=== PATIENT | female | born 1955 | race Caucasian/White ===

== ENCOUNTER → 2016-06-28 | Outpatient (CLI) | payer BC ==
[2016-06-28] MEDS: Iopamidol 755 MG/ML 500 ML Multipack Bottle IVPUSH STA (10:32)
--- NOTE | 2016-06-28 13:36 | CT ---
CT of the abdomen and pelvis with and without contrast. HISTORY: Hematuria TECHNIQUE: Axial CT images were obtained of the abdomen and pelvis without and following the adminis tration of 83 mL in the left antecubital fossa. Coronal and sagittal reconstructions obtained. FINDINGS: The lung bases are clear, no pleural effusion. Tiny hepatic cysts noted. The spleen, adrenal glands, and pancreas appear unremarkable. Cholecystect nerissa. There is no bulky retroperitoneal lymphadenopathy. No abdominal ascites. There are 2-3 mm nonobstructing left renal stones are noted. The kidneys otherwise enhance and funct ion symmetrically without evidence of obstructive uropathy. The large and small bowel are normal in caliber without evidence of obstruction. Appendectomy. Diver ticulosis is noted without evidence of diverticulitis. There is no bulky pelvic lymphadenopathy. No free fluid. No free air. The urinary bladder appears normal. Mild infrarenal aortic ectasia. The visualized osseous structures appear normal. IMPRESSION: 1. No acute findings within the abdomen or pelvis. 2. Small nonobstructing left nephrolithiasis. 3. Diverticulosis without evidence of diverticulitis.
== END ==
LOC: MW.DI 09:21
PROVIDERS: ATTEND Urology
DX: R31.9 Hematuria, unspecified (principal); N20.0 Calculus of kidney; K57.90 Diverticulosis of intestine, part unspecified, without perforation or abscess without bleeding
CPT/HCPCS: 36415; 74178; 82565; Q9967

== ENCOUNTER → 2016-07-26 | Outpatient (CLI) | payer BC | END | disposition home or self-care (01) | LOC: MW.CHFP 13:43 | PROVIDERS: ATTEND Emergency Medicine | DX: E11.9 Type 2 diabetes mellitus without complications (principal) | CPT/HCPCS: 36415; 83036 ==

== ENCOUNTER → 2016-08-08 | Outpatient (CLI) | payer BC ==
[2016-08-08 16:31] LABS: CHLORIDE,CL 108 mmol/L (98-110); SODIUM,NA 143 mmol/L (136-146)
--- NOTE | 2016-08-09 14:42 | CR ---
EXAM DATE: 08/08/16 PATIENT'S AGE: 60 Patient: YULIANA HANSON Facility: [place], [place] Site . Site : 1955 Study: XRay Spine Cervical [id number]/26/2017 11:55:25 AM Ordering Physician: Nawaf Huerta Pa-C Final Report: HISTORY: Bilateral shoulder pain. Technique: Three views of the cervical spine. Comparison: No prior. Findings: There is no cervical fracture or malalignment. Mild degenerative disc disease without significant disc space narrowing. Degenerative joint disease is present within the cervical spine. The base of the dens appears intact. Normal articulation of lateral masses of C1 and C2. There is no acute fracture. Prevertebral soft tissues within normal limits. Hyperplastic transverse process on the right at C7 versus rudimentary rib. Impression: 1. No fracture or malalignment. 2. Degenerative disc and joint disease. Dictated by Arnulfo Bishop MD @ Aug 09 2016 1:16PM (Electronic Signature) Report Signed by Proxy. BRIAN
== END ==
LOC: MW.CHORTHO 11:37
PROVIDERS: ATTEND Physician Assistant
DX: M25.511 Pain in right shoulder (principal); M25.512 Pain in left shoulder; R61 Generalized hyperhidrosis; M50.30 Other cervical disc degeneration, unspecified cervical region; M47.812 Spondylosis without myelopathy or radiculopathy, cervical region
CPT/HCPCS: 36415; 72040; 72040-26; 80053; 85025

== ENCOUNTER 2016-08-31 22:44 | Emergency (ER) | payer BC ==
--- NOTE | 2016-08-31 23:04 | EDM.PDOC ---
ED HPI GENERAL MEDICAL PROBLEM - General Chief Complaint: ENT Problem Stated Complaint: PT HAS BLISTER INSIDE MOUTH Time Seen by Provider: 08/31/16 23:04 Source of Information: Reports: Patient - History of Present Illness INITIAL COMMENTS - FREE TEXT/NARRATIVE: HISTORY AND PHYSICAL: History of present illness: [] Patient presents with a blood blister on her right cheek at the size of a PE , she is on aspirin Plavix, she does bruise easily, she is concerned about the lesions is not certain if she bit her cheek or what is caused lesion however that would be the appearance No other symptoms such as fever nausea vomiting chills sweats no chest pain shortness breath headache dizziness or palpitation no bowel or urine symptoms Review of systems: As per history of present illness and below otherwise all systems reviewed and negative. Past medical history: As per history of present illness and as reviewed below otherwise noncontributory. Surgical history: As per history of present illness and as reviewed below otherwise noncontributory. Social history: No reported history of drug or alcohol abuse. Family history: As per history of present illness and as reviewed below otherwise noncontributory. Physical exam: HEENT: Atraumatic, normocephalic, pupils reactive, negative for conjunctival pallor or scleral icterus, mucous membranes moist, throat clear, neck supple, nontender, trachea midline. Oral mucosa within normal limits other than a blood blister on her right cheek as per history of present illness, nonbleeding Lungs: Clear to auscultation, breath sounds equal bilaterally, chest nontender. Heart: S1S2, regular, negative for clicks, rubs, or JVD. Abdomen: Soft, nondistended, nontender. Negative for masses or hepatosplenomegaly. Negative for costovertebral tenderness. Pelvis: Stable nontender. Genitourinary: Deferred. Rectal: Deferred. Extremities: Atraumatic, negative for cords or calf pain. Neurovascular unremarkable. Neuro: Awake, alert, oriented. Cranial nerves II through XII unremarkable. Cerebellum unremarkable. Motor and sensory unremarkable throughout. Exam nonfocal. Diagnostics: [] CBC, INR, PT Therapeutics: [] None Impression: [] Blood blister/small hematoma right cheek Definitive disposition and diagnosis as appropriate pending reevaluation and review of above. mouth Pain Score (Numeric/FACES): 6 - Related Data Allergies Allergy/AdvReac Type Severity Reaction Status Date / Time amoxicillin [Amoxicillin] Allergy Rash Verified 08/13/13 11:45 cephalexin Allergy Rash Verified 08/31/16 22:53 Corticosteroids Allergy Depression Verified 08/13/13 11:45 (Glucocorticoids) erythromycin base Allergy Rash Verified 08/13/13 11:45 [Erythromycin Base] Penicillins Allergy Rash Verified 08/13/13 11:45 Home Meds: Home Meds Aspirin 81 mg PO DAILY 12/12/14 [History] Clopidogrel [Plavix] 75 mg PO DAILY 12/12/14 [History] Losartan [Cozaar] 25 mg PO DAILY 12/12/14 [History] atorvaSTATin [Lipitor] 40 mg PO BEDTIME 12/12/14 [History] predniSONE [Prednisone] 5 mg PO DAILY 12/12/14 [History] Carvedilol [Coreg] 6.25 mg PO BIDMEALS 08/31/16 [History] metFORMIN [Glucophage XR] 500 mg PO DAILY 08/31/16 [History] Past Medical History - Past Surgical History Other Musculoskeletal Surgeries/Procedures:: back/disc surgery (may 2014) Social & Family History - Tobacco Use Smoking Status *Q: Current Every Day Smoker Years of Tobacco use: 40 Packs/Tins Daily: 0.5 - Recreational Drug Use Recreational Drug Use: No ED ROS GENERAL - Review of Systems Review Of Systems: ROS reveals no pertinent complaints other than HPI. ED EXAM, GENERAL - Physical Exam Exam: See Below Course - Vital Signs Last Recorded V/S: Last Vital Signs Temp 36.8 C 08/31/16 22:55 Pulse 80 08/31/16 22:55 Resp 18 08/31/16 22:55 BP 191/92 H 08/31/16 22:55 Pulse Ox 98 08/31/16 22:55 - Orders/Labs/Meds Labs: Laboratory Tests 08/31/16 08/31/16 Range/Units 23:20 23:20 WBC 12.84 H (4.0-11.0) K/uL RBC 4.86 (4.30-5.90) M/uL Hgb 12.9 (12.0-16.0) g/dL Hct 40.1 (36.0-46.0) % MCV 82.5 (80.0-98.0) fL MCH 26.5 L (27.0-32.0) pg MCHC 32.2 (31.0-37.0) g/dL RDW Std Deviation 52.1 (28.0-62.0) fl RDW Coeff of Dorene 17 H (11.0-15.0) % Plt Count 351 (150-400) K/uL MPV 9.20 (7.40-12.00) fL Neut % (Auto) 62.4 (48.0-80.0) % Lymph % (Auto) 27.9 (16.0-40.0) % [place] % (Auto) 7.8 (0.0-15.0) % Eos % (Auto) 1.6 (0.0-7.0) % Baso % (Auto) 0.3 (0.0-1.5) % Neut # (Auto) 8.0 H (1.4-5.7) K/uL Lymph # (Auto) 3.6 H (0.6-2.4) K/uL [place] # (Auto) 1.0 H (0.0-0.8) K/uL Eos # (Auto) 0.2 (0.0-0.7) K/uL Baso # (Auto) 0.0 (0.0-0.1) K/uL Nucleated RBC % 0.0 /100WBC Nucleated RBCs # 0 K/uL INR 0.99 (0.86-1.11) Departure - Departure Time of Disposition: 00:06 Disposition: Home, Self-Care 01 Condition: good Clinical Impression: Hematoma - Discharge Information Forms: ED Department Discharge Additional Instructions: Return if symptoms persist or worsen Followup with primary care as needed Continue current medications as prescribed The following information is given to patients seen in the emergency department who are being discharged to home. This information is to outline your options for follow-up care. We provide all patients seen in our emergency department with a follow-up referral. The need for follow-up, as well as the timing and circumstances, are variable depending upon the specifics of your emergency department visit. If you don't have a primary care physician on staff, we will provide you with a referral. We always advise you to contact your personal physician following an emergency department visit to inform them of the circumstance of the visit and for follow-up with them and/or the need for any referrals to a consulting specialist. The emergency department will also refer you to a specialist when appropriate. This referral assures that you have the opportunity for follow-up care with a specialist. All of these measure are taken in an effort to provide you with optimal care, which includes your follow-up. Under all circumstances we always encourage you to contact your private physician who remains a resource for coordinating your care. When calling for follow-up care, please make the office aware that this follow-up is from your recent emergency room visit. If for any reason you are refused follow-up, please contact the [facility] emergency department at and asked to speak to the emergency department charge nurse.
[2016-09-01 01:22] VITALS: BP 150/80
== END 2016-09-01 00:12 | disposition home or self-care (01) ==
LOC: MW.ED 22:44
DX: S00.83XA Contusion of other part of head, initial encounter (principal); F17.210 Nicotine dependence, cigarettes, uncomplicated; Z88.1 Allergy status to other antibiotic agents; Z88.0 Allergy status to penicillin; Z88.8 Allergy status to other drugs, medicaments and biological substances; Z79.82 Long term (current) use of aspirin; Z79.899 Other long term (current) drug therapy; Z79.84 Long term (current) use of oral hypoglycemic drugs; X58.XXXA Exposure to other specified factors, initial encounter
CPT/HCPCS: 85025; 85610; 99282; 99283

== ENCOUNTER 2016-12-19 13:30 | Observation (INO) | payer BC ==
[2016-12-19] MEDS ORDERED: Aspirin 81 MG Tab.Chew PO ONE (13:43)
[2016-12-19] MEDS ORDERED: Sodium Chloride 0.9% 2.5 ML Syringe FLUSH PRN ×2 (13:43)
[2016-12-19] MEDS ORDERED: Sodium Chloride 0.9% 10 ML Syringe FLUSH PRN (13:43)
[2016-12-19] MEDS ORDERED: Nitroglycerin 0.4 MG Tab.SL SL SCH (13:45)
--- NOTE | 2016-12-19 13:50 | EDM.PDOC ---
ED HPI GENERAL MEDICAL PROBLEM - General Stated Complaint: PRESSURE ON CHEST Time Seen by Provider: 12/19/16 13:43 - History of Present Illness INITIAL COMMENTS - FREE TEXT/NARRATIVE: HISTORY AND PHYSICAL: History of present illness: The patient is a 61-year-old female who follows in our family practice clinic and has a known history of coronary artery disease with 2 stents placed 2 years ago at [facility], she also has a history of GERD and a hiatal hernia, COPD, hypertension hypercholesterolemia; patient presents to the ED with chest pressure that has been episodic since Saturday, 3 days ago. The patient says she has sublingual nitroglycerin at home but she did not try that because it doesn' t heal like cardiac pain feels more like gas. She says it will come on episodically and only last for a few minutes she will belch and it will improve. She says that Saturday night she had diaphoresis and woke very sweaty but did not have pain until Saturday. Patient presented to the clinic and was referred here due to her history. Patient currently rates the pain as a pressure it is midsternal and nonradiating and not associated with shortness of breath abdominal pain nausea vomiting or back pain. She rates it as a 4/10 and again did not take any nitroglycerin. Patient has followed up with her charge weigher at [facility] and says that he has not done any testing in the last 2 years. The patient also has a long-standing history of tobacco use but no drug use The patient does tell me that she was in the clinic several weeks ago for a gastritis. Review of systems: As per history of present illness and below otherwise all systems reviewed and negative. Past medical history: As per history of present illness and as reviewed below otherwise noncontributory. Surgical history: As per history of present illness and as reviewed below otherwise noncontributory. Social history: No reported history of drug or alcohol abuse. Family history: As per history of present illness and as reviewed below otherwise noncontributory. Physical exam: Gen.: Well-developed well-nourished female who is nontoxic and speaking clearly and easily. Vital signs have been reviewed by me HEENT: Atraumatic, normocephalic, negative for conjunctival pallor or scleral icterus, mucous membranes moist, throat clear, neck supple, nontender, trachea midline. Lungs: Clear to auscultation, breath sounds equal bilaterally, chest nontender. Heart: S1S2, regular rate and rhythm no overt murmurs Abdomen: Soft, nondistended, nontender. NABS Skin: No diaphoresis normal turgor no evidence of any rashes or lesions Genitourinary: Deferred. Rectal: Deferred. Extremities: Atraumatic, negative for cords or calf pain. Neurovascular unremarkable. No pedal edema no leg asymmetry Neuro: Awake, alert, oriented. Cranial nerves II through XII unremarkable. Cerebellum unremarkable. Motor and sensory unremarkable throughout. Exam nonfocal. Diagnostics: CBC CMP troponin INR amylase lipase chest x-ray EKG Therapeutics: IV O2 monitor aspirin, 3 baby as the patient took one small morning, sublingual nitroglycerin, NTP Patient is chest pain-free after 2 sublingual nitroglycerin and nitro paste will be placed. I will continue to monitor the results and discuss with her the testing results and care plan. TESTING results were discussed with the patient as well as with Dr. Simpson [id number] : She is agreeable for observation admission as well as the hospitalist who also except for for admission. Impression: Chest pain rule out ACS Definitive disposition and diagnosis as appropriate pending reevaluation and review of above. chest Pain Score (Numeric/FACES): 4 - Related Data Allergies Allergy/AdvReac Type Severity Reaction Status Date / Time amoxicillin [Amoxicillin] Allergy Rash Verified 12/19/16 13:51 cephalexin Allergy Rash Verified 12/19/16 13:51 Corticosteroids Allergy Depression Verified 12/19/16 13:51 (Glucocorticoids) erythromycin base Allergy Rash Verified 12/19/16 13:51 [Erythromycin Base] Penicillins Allergy Rash Verified 12/19/16 13:51 Home Meds: Home Meds Aspirin 81 mg PO DAILY 12/12/14 [History] Clopidogrel [Plavix] 75 mg PO DAILY 12/12/14 [History] Losartan [Cozaar] 25 mg PO DAILY 12/12/14 [History] atorvaSTATin [Lipitor] 40 mg PO BEDTIME 12/12/14 [History] predniSONE [Prednisone] 5 mg PO DAILY 12/12/14 [History] Carvedilol [Coreg] 6.25 mg PO BIDMEALS 08/31/16 [History] metFORMIN [Glucophage XR] 500 mg PO DAILY 08/31/16 [History] Past Medical History HEENT History: Reports: Impaired Vision Other HEENT History: wears glasses Cardiovascular History: Reports: CAD, High Cholesterol, Hypertension, Stents Endocrine/Metabolic History: Reports: Diabetes, Type II - Past Surgical History Other Musculoskeletal Surgeries/Procedures:: back/disc surgery (may 2014) Social & Family History - Family History Family Medical History: Noncontributory - Tobacco Use Smoking Status *Q: Current Every Day Smoker Years of Tobacco use: 40 Packs/Tins Daily: 0.5 - Caffeine Use Caffeine Use: Reports: Tea Caffeine Use Comment: 1 cup daily - Recreational Drug Use Recreational Drug Use: No ED ROS GENERAL - Review of Systems Review Of Systems: ROS reveals no pertinent complaints other than HPI. ED EXAM, GENERAL - Physical Exam Exam: See Below (See dictation) Course - Vital Signs Last Recorded V/S: Last Vital Signs Temp 36.6 C 12/19/16 13:30 Pulse 86 12/19/16 13:30 Resp 18 12/19/16 15:15 BP 149/87 H 12/19/16 15:15 Pulse Ox 96 12/19/16 15:15 - Orders/Labs/Meds Orders: Active Orders 24 hr Category Date Time Status Patient Status [ADT] Stat ADT 12/19/16 15:50 Ordered Cardiac Monitoring [RC] . DIRECTED Care 12/19/16 13:43 Active EKG Documentation Completion [RC] STAT Care 12/19/16 13:43 Active Oxygen Therapy [RC] ASDIRECTED Care 12/19/16 13:43 Active Pulse Oximetry [RC] ASDIRECTED Care 12/19/16 13:43 Active Sodium Chloride 0.9% [Saline Flush] Med 12/19/16 13:43 Active 10 ml FLUSH ASDIRECTED PRN Sodium Chloride 0.9% [Saline Flush] Med 12/19/16 13:43 Active 2.5 ml FLUSH ASDIRECTED PRN Sodium Chloride 0.9% [Saline Flush] Med 12/19/16 13:43 Active 2.5 ml FLUSH ASDIRECTED PRN Saline Lock Insert [OM.PC] Stat Oth 12/19/16 13:43 Ordered Medication Orders Sodium Chloride (Saline Flush) 2.5 ml FLUSH ASDIRECTED PRN PRN Reason: Keep Vein Open Sodium Chloride (Saline Flush) 10 ml FLUSH ASDIRECTED PRN PRN Reason: Keep Vein Open Sodium Chloride (Saline Flush) 2.5 ml FLUSH ASDIRECTED PRN PRN Reason: Keep Vein Open Labs: Laboratory Tests 12/19/16 12/19/16 12/19/16 Range/Units 13:53 13:53 13:53 WBC 15.50 H (4.0-11.0) K/uL RBC 5.17 (4.30-5.90) M/uL Hgb 14.6 (12.0-16.0) g/dL Hct 43.9 (36.0-46.0) % MCV 84.9 (80.0-98.0) fL MCH 28.2 (27.0-32.0) pg MCHC 33.3 (31.0-37.0) g/dL RDW Std Deviation 49.1 (28.0-62.0) fl RDW Coeff of Dorene 16 H (11.0-15.0) % Plt Count 361 (150-400) K/uL MPV 9.20 (7.40-12.00) fL Neut % (Auto) 70.6 (48.0-80.0) % Lymph % (Auto) 22.1 (16.0-40.0) % [place] % (Auto) 6.8 (0.0-15.0) % Eos % (Auto) 0.4 (0.0-7.0) % Baso % (Auto) 0.1 (0.0-1.5) % Neut # (Auto) 10.9 H (1.4-5.7) K/uL Lymph # (Auto) 3.4 H (0.6-2.4) K/uL [place] # (Auto) 1.1 H (0.0-0.8) K/uL Eos # (Auto) 0.1 (0.0-0.7) K/uL Baso # (Auto) 0.0 (0.0-0.1) K/uL Nucleated RBC % 0.0 /100WBC Nucleated RBCs # 0 K/uL INR 0.98 (0.86-1.11) Sodium 141 (136-146) mmol/L Potassium 4.0 (3.5-5.1) mmol/L Chloride 106 (98-110) mmol/L Carbon Dioxide 25 (21-31) mmol/L BUN 12 (6.0-23.0) mg/dL Creatinine 0.7 (0.6-1.5) mg/dL Est Cr Clr Drug Dosing 78.01 mL/min Estimated GFR (MDRD) > 60.0 ml/min Glucose 107 (60-110) mg/dL Calcium 10.2 (8.8-10.8) mg/dL Total Bilirubin 0.8 (0.1-1.5) mg/dL AST 16 (5-40) IU/L ALT 27 (8-54) IU/L Alkaline Phosphatase 103 (40-150) Troponin I (0.0-0.29) NG/ML Total Protein 7.8 (6.0-8.0) g/dL Albumin 4.3 (3.4-4.8) g/dL Globulin 3.5 (2.0-3.5) g/dL Albumin/Globulin Ratio 1.2 L (1.3-2.8) Amylase 47 (10-90) U/L Lipase 17 (7-80) U/L 12/19/16 Range/Units 13:53 WBC (4.0-11.0) K/uL RBC (4.30-5.90) M/uL Hgb (12.0-16.0) g/dL Hct (36.0-46.0) % MCV (80.0-98.0) fL MCH (27.0-32.0) pg MCHC (31.0-37.0) g/dL RDW Std Deviation (28.0-62.0) fl RDW Coeff of Dorene (11.0-15.0) % Plt Count (150-400) K/uL MPV (7.40-12.00) fL Neut % (Auto) (48.0-80.0) % Lymph % (Auto) (16.0-40.0) % [place] % (Auto) (0.0-15.0) % Eos % (Auto) (0.0-7.0) % Baso % (Auto) (0.0-1.5) % Neut # (Auto) (1.4-5.7) K/uL Lymph # (Auto) (0.6-2.4) K/uL [place] # (Auto) (0.0-0.8) K/uL Eos # (Auto) (0.0-0.7) K/uL Baso # (Auto) (0.0-0.1) K/uL Nucleated RBC % /100WBC Nucleated RBCs # K/uL INR (0.86-1.11) Sodium (136-146) mmol/L Potassium (3.5-5.1) mmol/L Chloride (98-110) mmol/L Carbon Dioxide (21-31) mmol/L BUN (6.0-23.0) mg/dL Creatinine (0.6-1.5) mg/dL Est Cr Clr Drug Dosing mL/min Estimated GFR (MDRD) ml/min Glucose (60-110) mg/dL Calcium (8.8-10.8) mg/dL Total Bilirubin (0.1-1.5) mg/dL AST (5-40) IU/L ALT (8-54) IU/L Alkaline Phosphatase (40-150) Troponin I < 0.10 (0.0-0.29) NG/ML Total Protein (6.0-8.0) g/dL Albumin (3.4-4.8) g/dL Globulin (2.0-3.5) g/dL Albumin/Globulin Ratio (1.3-2.8) Amylase (10-90) U/L Lipase (7-80) U/L Meds: Medications Generic Name Dose Route Start Last Admin Trade Name Freq PRN Reason Stop Dose Admin Sodium Chloride 2.5 ml 12/19/16 13:43 Saline Flush FLUSH ASDIRECTED PRN Keep Vein Open Sodium Chloride 10 ml 12/19/16 13:43 Saline Flush FLUSH ASDIRECTED PRN Keep Vein Open Sodium Chloride 2.5 ml 12/19/16 13:43 Saline Flush FLUSH ASDIRECTED PRN Keep Vein Open Discontinued Medications Generic Name Dose Route Start Last Admin Trade Name Freq PRN Reason Stop Dose Admin Aspirin 243 mg 12/19/16 13:43 12/19/16 14:07 Aspirin PO 12/19/16 13:44 243 mg ONETIME ONE Administration Nitroglycerin 0.4 mg 12/19/16 13:45 Nitrostat SL Q5M TAPAN Nitroglycerin 0.4 mg 12/19/16 14:06 12/19/16 14:10 Nitrostat SL 12/19/16 14:07 0.4 mg Q5M STA Administration Nitroglycerin 0.4 mg 12/19/16 14:11 12/19/16 14:18 Nitrostat SL 12/19/16 14:12 0.4 mg Q5M STA Administration Nitroglycerin 0.5 gm 12/19/16 14:33 12/19/16 15:19 Nitro-Bid 2% TOP 12/19/16 14:34 0.5 gm ONETIME ONE Administration Departure - Departure Time of Disposition: 15:52 Disposition: Refer to Observation Condition: Good Clinical Impression: Acute coronary syndrome - Discharge Information Referrals: PCP,None [Primary Care Provider] - - My Orders Last 24 Hours: My Active Orders 12/19/16 13:43 Cardiac Monitoring [RC] . DIRECTED EKG Documentation Completion [RC] STAT Oxygen Therapy [RC] ASDIRECTED Pulse Oximetry [RC] ASDIRECTED Sodium Chloride 0.9% [Saline Flush] 10 ml FLUSH ASDIRECTED PRN Sodium Chloride 0.9% [Saline Flush] 2.5 ml FLUSH ASDIRECTED PRN Sodium Chloride 0.9% [Saline Flush] 2.5 ml FLUSH ASDIRECTED PRN Saline Lock Insert [OM.PC] Stat 12/19/16 15:50 Patient Status [ADT] Stat - Assessment/Plan Last 24 Hours: My Active Orders 12/19/16 13:43 Cardiac Monitoring [RC] . DIRECTED EKG Documentation Completion [RC] STAT Oxygen Therapy [RC] ASDIRECTED Pulse Oximetry [RC] ASDIRECTED Sodium Chloride 0.9% [Saline Flush] 10 ml FLUSH ASDIRECTED PRN Sodium Chloride 0.9% [Saline Flush] 2.5 ml FLUSH ASDIRECTED PRN Sodium Chloride 0.9% [Saline Flush] 2.5 ml FLUSH ASDIRECTED PRN Saline Lock Insert [OM.PC] Stat 12/19/16 15:50 Patient Status [ADT] Stat
[2016-12-19] MEDS ORDERED: Nitroglycerin 0.4 MG Tab.SL SL STA ×2 (14:06→14:11)
--- NOTE | 2016-12-19 14:20 | CR ---
EXAMINATION: Portable chest radiograph. HISTORY: Pain. FINDINGS: The trachea is midline. The cardiomediastinal silhouette is within normal limits. No pulmonary infilt rates, effusions or pneumothorax. Osseous structures appear unremarkable. IMPRESSION: No acute cardiopulmonary process.
[2016-12-19] MEDS ORDERED: Nitroglycerin 2% Oint 1 GM UD Packet TOP ONE (14:33)
[2016-12-19 14:40] LABS: CHLORIDE,CL 106 mmol/L (98-110); SODIUM,NA 141 mmol/L (136-146)
[2016-12-19] MEDS ORDERED: Ondansetron 4 MG/2 ML SDV IVPUSH PRN (16:09)
[2016-12-19] MEDS ORDERED: Acetaminophen 325 MG Tab PO PRN (16:09)
--- NOTE | 2016-12-19 16:09 | PCM.HP ---
H&P History of Present Illness - General Date of Service: 12/19/16 Admit Problem/Dx: Chest pain Source of Information: Patient History Limitations: Reports: No Limitations - History of Present Illness Initial Comments - Free Text/Narative: This 61 year old female with pmh of DM type 2, CAD with stenting 2 years ago in [place], HTN, and a tobacco user present initially to clinic with concerns of some burning to chest, that is relieved with belching. She was urged to be evaluated in the ED due to her pmh. In the ED, she continued to denie pain, but the burning did get better with SL nitro administration. She reports she has otherwise been in good health and has had no concerns. She received an steroid injection in her L shoulder two days ago and has been waking up with diaphoresis since then, some L shoulder pain but nothing out of the norm after receiving an injection, which she gets every few months to her shoulders bilaterally. She denies increase in burning with activity or eating food. Eating doesnt help pain, but belching relieves the pain and then a few hours later it builds again. She denies chest pain, no palpitations or SOB. Scant LUQ tenderness, which she was seen in clinic a couple weeks ago and diagnoses with acute gastritis and started on Omeprazole by Dr Small. This has helped some and pain has decreased. She also reports she has a hiatal hernia. In the ED leukocytosis is 15,000, likely due to recent shoulder injection. and BMP is WNL. CXR negative, EKG SR with LVH no ST segment changes. She will be admitted for atypical chest pain R/O ACS. chest Pain Score (Numeric/FACES): 4 - Related Data Allergies/Adverse Reactions: Allergies Allergy/AdvReac Type Severity Reaction Status Date / Time amoxicillin [Amoxicillin] Allergy Rash Verified 12/19/16 13:51 cephalexin Allergy Rash Verified 12/19/16 13:51 Corticosteroids Allergy Depression Verified 12/19/16 13:51 (Glucocorticoids) erythromycin base Allergy Rash Verified 12/19/16 13:51 [Erythromycin Base] Penicillins Allergy Rash Verified 12/19/16 13:51 Home Medications: Home Meds Aspirin 81 mg PO DAILY 12/12/14 [History] Clopidogrel [Plavix] 75 mg PO DAILY 12/12/14 [History] Losartan [Cozaar] 25 mg PO DAILY 12/12/14 [History] atorvaSTATin [Lipitor] 40 mg PO BEDTIME 12/12/14 [History] predniSONE [Prednisone] 5 mg PO DAILY 12/12/14 [History] Carvedilol [Coreg] 6.25 mg PO BIDMEALS 08/31/16 [History] metFORMIN [Glucophage XR] 500 mg PO DAILY 08/31/16 [History] Past Medical History HEENT History: Reports: Impaired Vision Other HEENT History: wears glasses Cardiovascular History: Reports: CAD, High Cholesterol, Hypertension, Stents Respiratory History: Reports: COPD, SOB. 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 Exam - Exam Exam: See Below - Vital Signs Vital Signs: Last Vital Signs Temp 98 F 12/19/16 13:30 Pulse 86 12/19/16 13:30 Resp 18 12/19/16 15:15 BP 149/87 H 12/19/16 15:15 Pulse Ox 96 12/19/16 15:15 Weight: 68.5 kg - Exam General: Alert, Oriented, Cooperative HEENT: PERRLA, Hearing Intact, Mucosa Moist & [place], Nares Patent, Normal Nasal Septum, Posterior Pharynx Clear, Conjunctiva Clear, EOMI, EACs Clear, TMs Clear Neck: Supple, Trachea Midline, 2 Lungs: Clear to Auscultation, Normal Respiratory Effort Cardiovascular: Regular Rate, Regular Rhythm GI/Abdominal Exam: Normal Bowel Sounds, Soft, No Distention, No Mass, Tender ( scant tenderness to LUQ) Extremities: Normal Inspection, Normal Range of Motion, Non-Tender, No Pedal Edema, Normal Capillary Refill Neuro Extensive - Mental Status: Alert, Oriented x3, Normal Mood/Affect, Normal Cognition Psychiatric: Alert, Normal Affect, Normal Mood - Patient Data Result Diagrams: 12/19/16 13:53 12/19/16 13:53 *Q Meaningful Use (ADM) - VTE *Q VTE Criteria *Q: - Stroke *Q Stroke Criteria *Q: - AMI *Q AMI Criteria *Q: - Problem List (1) Chest pain SNOMED Code(s): 90959982 ICD Code: R07.9 - CHEST PAIN, UNSPECIFIED Status: Acute Current Visit: Yes (2) Gastritis SNOMED Code(s): 1619072 ICD Code: K29.70 - GASTRITIS, UNSPECIFIED, WITHOUT BLEEDING Status: Acute Current Visit: Yes Qualifiers: Gastritis type: other gastritis Chronicity: acute Gastritis bleeding: without bleeding Qualified Code(s): K29.00 - Acute gastritis without bleeding (3) HTN (hypertension) SNOMED Code(s): 81915683 ICD Code: I10 - ESSENTIAL (PRIMARY) HYPERTENSION Status: Chronic Current Visit: Yes Qualifiers: Hypertension type: essential hypertension Qualified Code(s): I10 - Essential (primary) hypertension (4) DM type 2 (diabetes mellitus, type 2) SNOMED Code(s): 43137465 ICD Code: E11.9 - TYPE 2 DIABETES MELLITUS WITHOUT COMPLICATIONS Status: Chronic Current Visit: Yes Qualifiers: Diabetes mellitus complication status: without complication Diabetes mellitus group home insulin use: without group home use Qualified Code(s): E11.9 - Type 2 diabetes mellitus without complications (5) Smoker SNOMED Code(s): 53841952 ICD Code: F17.200 - NICOTINE DEPENDENCE, UNSPECIFIED, UNCOMPLICATED Status : Chronic Current Visit: Yes Problem List Initiated/Reviewed/Updated: Yes Orders Last 24hrs: Medication Orders Sodium Chloride (Saline Flush) 2.5 ml FLUSH ASDIRECTED PRN PRN Reason: Keep Vein Open Sodium Chloride (Saline Flush) 10 ml FLUSH ASDIRECTED PRN PRN Reason: Keep Vein Open Sodium Chloride (Saline Flush) 2.5 ml FLUSH ASDIRECTED PRN PRN Reason: Keep Vein Open Assessment/Plan Comment:: this 61 year old female admitted with atypical chest pain 1. Chest pain: No pain currently, doesn't feel like this is cardiac in nature. Due to hx will trend enzymes and monitor on telemetry 2. Gastritis: Will order protonix, maybe be cause of burning, belching and LUQ pain. Will add carafate. 3. HTN: Continue home medications 4. DM type 2, continue metformin VTE prophylaxis: Lovenox.
[2016-12-19] MEDS ORDERED: Alum Hydrox/Mag Hydrox/Simeth 15 ML, Lidocaine 2% 5 ML PO ONE ×2 (16:49)
[2016-12-19] MEDS ORDERED: Carvedilol 6.25 MG Tab PO SCH (17:00)
[2016-12-19] MEDS ORDERED: metFORMIN 500 MG Tab.ER PO SCH (17:00)
[2016-12-19] MEDS ORDERED: Sucralfate 1 GM Tab PO SCH (17:15)
[2016-12-19] MEDS ORDERED: Pantoprazole 40 MG in Sodium Chloride 0.9% 10 ML IVPUSH ONE (17:15)
[2016-12-19] MEDS ORDERED: Losartan 50 MG Tab PO SCH (18:45)
[2016-12-19] MEDS: Carvedilol 6.25 MG Tab PO SCH (20:08)
[2016-12-19] MEDS: Sucralfate Suspension 1 GM/10 ML Cup PO SCH (20:20)
[2016-12-19] MEDS ORDERED: predniSONE 5 MG Tab PO SCH (21:00)
[2016-12-20] MEDS: Sucralfate Suspension 1 GM/10 ML Cup PO SCH (08:16)
[2016-12-20] MEDS: Carvedilol 6.25 MG Tab PO SCH (08:26)
[2016-12-20 08:27] VITALS: BP 154/85
[2016-12-20] MEDS ORDERED: predniSONE 5 MG Tab PO SCH (09:00)
[2016-12-20] MEDS ORDERED: atorvaSTATin 40 MG Tab PO SCH (09:00)
[2016-12-20] MEDS ORDERED: Clopidogrel 75 MG Tab PO SCH (09:00)
[2016-12-20] MEDS ORDERED: Enoxaparin 40 MG/0.4 ML Syringe SUBCUT SCH (09:00)
[2016-12-20] MEDS ORDERED: Aspirin 81 MG Tab.Chew PO SCH (09:00)
[2016-12-20] MEDS ORDERED: Losartan 50 MG Tab PO SCH (09:00)
--- NOTE | 2016-12-20 09:21 | PCM.DCSUM1 ---
Discharge Summary - Hospital Course Brief History: This 61 year old female with pmh of DM type 2, CAD with stenting 2 years ago in [place], HTN, and a tobacco user present initially to clinic with concerns of some burning to chest, that is relieved with belching. She was urged to be evaluated in the ED due to her pmh. In the ED, she continued to denie pain, but the burning did get better with SL nitro administration. She reports she has otherwise been in good health and has had no concerns. She received an steroid injection in her L shoulder two days ago and has been waking up with diaphoresis since then, some L shoulder pain but nothing out of the norm after receiving an injection, which she gets every few months to her shoulders bilaterally. She denies increase in burning with activity or eating food. Eating doesnt help pain, but belching relieves the pain and then a few hours later it builds again. She denies chest pain, no palpitations or SOB. Scant LUQ tenderness, which she was seen in clinic a couple weeks ago and diagnoses with acute gastritis and started on Omeprazole by Dr Small. This has helped some and pain has decreased. She also reports she has a hiatal hernia. Last stress test was with Dr. Ace in [place] in July, and she reports it was good. In the ED leukocytosis is 15,000, likely due to recent shoulder injection. and BMP is WNL. CXR negative, EKG SR with LVH no ST segment changes. She will be admitted for atypical chest pain R/O ACS. - Discharge Data Discharge Date: 12/20/16 Discharge Disposition: Home, Self-Care 01 Condition: Good - Discharge Diagnosis/Problem(s) (1) Chest pain SNOMED Code(s): 54703034 ICD Code: R07.9 - CHEST PAIN, UNSPECIFIED Status: Resolved (2) Gastritis SNOMED Code(s): 1497089 ICD Code: K29.70 - GASTRITIS, UNSPECIFIED, WITHOUT BLEEDING Status: Acute Qualifiers: Gastritis type: other gastritis Chronicity: acute Gastritis bleeding: without bleeding Qualified Code(s): K29.00 - Acute gastritis without bleeding (3) HTN (hypertension) SNOMED Code(s): 72826191 ICD Code: I10 - ESSENTIAL (PRIMARY) HYPERTENSION Status: Chronic Qualifiers: Hypertension type: essential hypertension Qualified Code(s): I10 - Essential (primary) hypertension (4) DM type 2 (diabetes mellitus, type 2) SNOMED Code(s): 35396907 ICD Code: E11.9 - TYPE 2 DIABETES MELLITUS WITHOUT COMPLICATIONS Status: Chronic Qualifiers: Diabetes mellitus complication status: without complication Diabetes mellitus usp insulin use: without termite control servicer use Qualified Code(s): E11.9 - Type 2 diabetes mellitus without complications (5) Smoker SNOMED Code(s): 19203685 ICD Code: F17.200 - NICOTINE DEPENDENCE, UNSPECIFIED, UNCOMPLICATED Status : Chronic - Patient Instructions Diet: Heart Healthy Diet Activity: As Tolerated Driving: May Drive Today Showering/Bathing: May Shower Notify Provider of: Fever, Increased Pain, Swelling and Redness, Drainage, Nausea and/or Vomiting - Discharge Plan Home Medications: Home Meds Aspirin 81 mg PO ASDIRECTED 12/12/14 [History] Losartan [Cozaar] 25 mg PO DAILY 12/12/14 [History] atorvaSTATin [Lipitor] 40 mg PO DAILY 12/12/14 [History] predniSONE [Prednisone] 5 mg PO DAILY 12/12/14 [History] Carvedilol [Coreg] 6.25 mg PO BIDMEALS 08/31/16 [History] metFORMIN [Glucophage XR] 500 mg PO ACDINNER 08/31/16 [History] Albuterol Sulfate [Proair Hfa] 8.5 gm IH ASDIRECTED PRN 12/19/16 [History] Carisoprodol 350 mg PO Q8H PRN 12/19/16 [History] Clopidogrel Bisulfate [Plavix] 75 mg PO DAILY 12/19/16 [History] Famotidine 40 mg PO BID 12/19/16 [History] Omeprazole 20 mg PO QAM 12/19/16 [History] Sucralfate [Carafate] 1 gm PO Q6H PRN 12/19/16 [History] traMADol HCl [Tramadol HCl] 1 - 2 tab PO Q6HR PRN 12/19/16 [History] Patient Handouts: Gastritis, Adult, [id number], Chest Wall Pain, [id number] Referrals: Yasmany Cardenas PA [Physician [employer] Operator] - 12/27/16 10:15 am (1 week post- hospital follow-up appointment with Dr. Small's PA) - Discharge Summary/Plan Comment DC Time >30 min.: No Discharge Summary/Plan Comment: Discharge Diagnoses: Chest pain- resolved, ACS ruled out Gastritis HTN DM type 2 Smoker Lacy was admitted for observation and monitored overnight. She denied any chest pain, and reported never having chest pain, but a burning sensation where she would belch and it would improve. All troponins negative and telemetry continued to show no ST segment changes. She was urged to continue with Omeprazole but incresae to BID and to start taking Carafate Dr Small prescribed for her. She reports she hasn't really been taking it. She is asking to be discharged this morning. She is safe for discharge. She is to follow up with PCP in 1 week and continue taking all home medications as prescribed and increasing Omeprazole to BID and taking Carafate with each meal and at bedtime. She is to return to ED or clinic if concerns should arise, she is scheduled to see Dr. Ace in 1 month for routine follow up. - General Info Date of Service: 12/20/16 Admission Dx/Problem (Free Text: Chest pain Subjective Update: Denies chest pain, palpitations or SOB. No heartburn at this time, eager for discharge today. Functional Status: Reports: Pain Controlled, Tolerating Diet, Ambulating, Urinating - Review of Systems General: Reports: No Symptoms. Denies: Fever, Fatigue Pulmonary: Reports: No Symptoms. Denies: Shortness of Breath Cardiovascular: Reports: No Symptoms. Denies: Chest Pain, Palpitations, Orthopnea, Edema Gastrointestinal: Reports: No Symptoms. Denies: Abdominal Pain, Nausea, Vomiting Genitourinary: Reports: No Symptoms. Denies: Dysuria, Frequency, Burning Musculoskeletal: Reports: No Symptoms Skin: Reports: No Symptoms Neurological: Reports: No Symptoms Psychiatric: Reports: No Symptoms - Patient Data Vitals - Most Recent: Last Vital Signs Temp 97.6 F 12/20/16 08:00 Pulse 75 12/20/16 08:26 Resp 14 12/20/16 08:00 BP 154/85 H 12/20/16 08:26 Pulse Ox 97 12/20/16 08:00 Weight - Most Recent: 68.5 kg I&O - Last 24 hours: Intake & Output 12/19/16 12/20/16 12/20/16 22:59 06:59 14:59 Intake Total 750 Output Total 1200 Balance -450 Lab Results - Last 24 hrs: Laboratory Results - last 24 hr 12/19/16 12/19/16 12/20/16 Range/Units 18:13 20:11 01:55 WBC (4.0-11.0) K/uL RBC (4.30-5.90) M/uL Hgb (12.0-16.0) g/dL Hct (36.0-46.0) % MCV (80.0-98.0) fL MCH (27.0-32.0) pg MCHC (31.0-37.0) g/dL RDW Std Deviation (28.0-62.0) fl RDW Coeff of [place] (11.0-15.0) % Plt Count (150-400) K/uL MPV (7.40-12.00) fL Neut % (Auto) (48.0-80.0) % Lymph % (Auto) (16.0-40.0) % [place] % (Auto) (0.0-15.0) % Eos % (Auto) (0.0-7.0) % Baso % (Auto) (0.0-1.5) % Neut # (Auto) (1.4-5.7) K/uL Lymph # (Auto) (0.6-2.4) K/uL [place] # (Auto) (0.0-0.8) K/uL Eos # (Auto) (0.0-0.7) K/uL Baso # (Auto) (0.0-0.1) K/uL Nucleated RBC % /100WBC Nucleated RBCs # K/uL POC Glucose 120 H (60-110) mg/dL Troponin I < 0.10 < 0.10 (0.0-0.29) NG/ML Triglycerides (10-190) mg/dL Cholesterol (131-240) mg/dL LDL Cholesterol, Calc (60-180) mg/dL VLDL Cholesterol (5-55) mg/dL HDL Cholesterol (40-80) mg/dL Cholesterol/HDL Ratio (3.3-6.0) 12/20/16 12/20/16 12/20/16 Range/Units 01:55 01:55 08:15 WBC 10.31 (4.0-11.0) K/uL RBC 4.56 (4.30-5.90) M/uL Hgb 12.9 (12.0-16.0) g/dL Hct 38.6 (36.0-46.0) % MCV 84.6 (80.0-98.0) fL MCH 28.3 (27.0-32.0) pg MCHC 33.4 (31.0-37.0) g/dL RDW Std Deviation 48.6 (28.0-62.0) fl RDW Coeff of [place] 16 H (11.0-15.0) % Plt Count 302 (150-400) K/uL MPV 9.10 (7.40-12.00) fL Neut % (Auto) 67.8 (48.0-80.0) % Lymph % (Auto) 26.0 (16.0-40.0) % [place] % (Auto) 5.0 (0.0-15.0) % Eos % (Auto) 0.9 (0.0-7.0) % Baso % (Auto) 0.3 (0.0-1.5) % Neut # (Auto) 7.0 H (1.4-5.7) K/uL Lymph # (Auto) 2.7 H (0.6-2.4) K/uL [place] # (Auto) 0.5 (0.0-0.8) K/uL Eos # (Auto) 0.1 (0.0-0.7) K/uL Baso # (Auto) 0.0 (0.0-0.1) K/uL Nucleated RBC % 0.0 /100WBC Nucleated RBCs # 0 K/uL POC Glucose 118 H (60-110) mg/dL Troponin I (0.0-0.29) NG/ML Triglycerides 153 (10-190) mg/dL Cholesterol 152 (131-240) mg/dL LDL Cholesterol, Calc 79 (60-180) mg/dL VLDL Cholesterol 31 (5-55) mg/dL HDL Cholesterol 42 (40-80) mg/dL Cholesterol/HDL Ratio 3.6 (3.3-6.0) Med Orders - Current: Current Medications Acetaminophen (Tylenol) 650 mg PO Q4H PRN PRN Reason: Pain Aspirin (Aspirin) 81 mg PO DAILY [facility] Last Admin: 12/20/16 08:17 Dose: Not Given Atorvastatin Calcium (Lipitor) 40 mg PO DAILY [facility] Last Admin: 12/20/16 08:26 Dose: 40 mg Carvedilol (Coreg) 6.25 mg PO BID@0800,2000 [facility] Last Admin: 12/20/16 08:26 Dose: 6.25 mg Clopidogrel Bisulfate (Plavix) 75 mg PO DAILY [facility] Last Admin: 12/20/16 08:26 Dose: 75 mg Enoxaparin Sodium (Lovenox) 40 mg SUBCUT DAILY [facility] Last Admin: 12/20/16 08:25 Dose: 40 mg Losartan Potassium (Cozaar) 25 mg PO DAILY@1200 [facility] Last Admin: 12/19/16 19:02 Dose: 25 mg Metformin HCl (Glucophage Xr) 500 mg PO DAILY@1700 [facility] Last Admin: 12/19/16 18:14 Dose: 500 mg Ondansetron HCl (Zofran) 4 mg IVPUSH Q4H PRN PRN Reason: Nausea Prednisone (Prednisone) 5 mg PO BEDTIME [facility] Last Admin: 12/19/16 20:08 Dose: 5 mg Sodium Chloride (Saline Flush) 2.5 ml FLUSH ASDIRECTED PRN PRN Reason: Keep Vein Open Sodium Chloride (Saline Flush) 10 ml FLUSH ASDIRECTED PRN PRN Reason: Keep Vein Open Sodium Chloride (Saline Flush) 2.5 ml FLUSH ASDIRECTED PRN PRN Reason: Keep Vein Open Sucralfate (Carafate) 1 gm PO QIDACANDBED [facility] Last Admin: 12/20/16 08:16 Dose: 1 gm Discontinued Medications Aspirin (Aspirin) 243 mg PO ONETIME ONE Stop: 12/19/16 13:44 Last Admin: 12/19/16 14:07 Dose: 243 mg Carvedilol (Coreg) 6.25 mg PO BIDMEALS [facility] Last Admin: 12/19/16 18:44 Dose: Not Given Al Hydroxide/Mg Hydroxide 15 (ml/ Lidocaine HCl 5 ml) 0 ml PO ONETIME ONE Stop: 12/19/16 16:50 Last Admin: 12/19/16 18:44 Dose: Not Given Pantoprazole Sodium 40 mg/ (Sodium Chloride) 10 mls @ 300 mls/hr IVPUSH NOW ONE Stop: 12/19/16 17:16 Last Admin: 12/19/16 17:50 Dose: 300 mls/hr Losartan Potassium (Cozaar) 25 mg PO DAILY [facility] Nitroglycerin (Nitrostat) 0.4 mg SL Q5M [facility] Nitroglycerin (Nitrostat) 0.4 mg SL Q5M STA Stop: 12/19/16 14:07 Last Admin: 12/19/16 14:10 Dose: 0.4 mg Nitroglycerin (Nitrostat) 0.4 mg SL Q5M STA Stop: 12/19/16 14:12 Last Admin: 12/19/16 14:18 Dose: 0.4 mg Nitroglycerin (Nitro-Bid 2%) 0.5 gm TOP ONETIME ONE Stop: 12/19/16 14:34 Last Admin: 12/19/16 15:19 Dose: 0.5 gm Prednisone (Prednisone) 5 mg PO DAILY [facility] Sucralfate (Carafate) 1 gm PO QIDACANDBED [facility] Last Admin: 12/19/16 18:33 Dose: Not Given - Exam General: Reports: Alert, Oriented, Cooperative, No Acute Distress HEENT: Reports: Pupils Equal, Pupils Reactive, EOMI, Mucous Membr. Moist/[place] Lungs: Reports: Clear to Auscultation, Normal Respiratory Effort Cardiovascular: Reports: Regular Rate, Regular Rhythm GI/Abdominal Exam: Normal Bowel Sounds, Soft, Non-Tender, No Organomegaly, No Distention, No Abnormal Bruit, No Mass, Pelvis Stable Extremities: Normal Inspection, Normal Range of Motion, Non-Tender, No Pedal Edema, Normal Capillary Refill Neurological: Reports: No New Focal Deficit Psy/Mental Status: Reports: Alert, Normal Affect, Normal Mood *Q Meaningful Use (DIS) - VTE *Q VTE Criteria *Q: - Stroke *Q Stroke Criteria *Q: - AMI *Q AMI Criteria *Q:
== END 2016-12-20 09:43 | disposition home or self-care (01) ==
LOC: MW.ED 13:30 → MW.ICU 15:50 → UNDOADMOB 16:07 → MW.ICU 16:07
PROVIDERS: ADMIT Internal Medicine; ATTEND Internal Medicine
DX: R07.89 Other chest pain (principal); K29.00 Acute gastritis without bleeding; I10 Essential (primary) hypertension; I25.10 Atherosclerotic heart disease of native coronary artery without angina pectoris; E11.9 Type 2 diabetes mellitus without complications; F17.210 Nicotine dependence, cigarettes, uncomplicated; E78.00 Pure hypercholesterolemia, unspecified; J44.9 Chronic obstructive pulmonary disease, unspecified; Z79.82 Long term (current) use of aspirin; Z79.52 Long term (current) use of systemic steroids; Z79.84 Long term (current) use of oral hypoglycemic drugs; Z79.02 Long term (current) use of antithrombotics/antiplatelets; Z79.899 Other long term (current) drug therapy; Z88.0 Allergy status to penicillin; Z88.1 Allergy status to other antibiotic agents; Z88.8 Allergy status to other drugs, medicaments and biological substances; Z98.890 Other specified postprocedural states
CPT/HCPCS: 36415; 71010; 80053; 80061; 82150; 82962; 83036; 83690; 84484; 85025; 85610; 93005; 96374; 99285; A9270; C9113; J1650; 96372; 99283; G0378

== ENCOUNTER 2017-07-03 07:23 | Day surgery (SDC) | payer BC ==
[~2017-07-03 07:23] MED LIST: Glycopyrrolate 0.2 MG/ML SDV ONE; Lactated Ringers 1,000 ML IV SCH; Lidocaine 2% 5 ML SDV ONE; Midazolam 1 MG/ML 2 ML SDV ONE; Neostigmine Methylsulfate 1 MG/ML 5 ML Syringe ONE; Ondansetron 4 MG/2 ML SDV ONE; Propofol 200 MG/20 ML SDV ONE; Rocuronium 10 MG/ML 10 ML Syringe ONE; fentaNYL 250 MCG/5 ML SDV ONE
[2017-07-03] MEDS ORDERED: Acetaminophen/HYDROcodone 325-10 MG Tab PO PRN (08:00)
[2017-07-03] MEDS ORDERED: Clindamycin Phosphate in D5W 600 MG in Premix Bag 1 BAG IV SCH ×2 (08:00)
[2017-07-03] MEDS ORDERED: Ketorolac 10 MG Tab PO PRN (08:00)
--- NOTE | 2017-07-03 08:27 | PCM.PREANE ---
Preanesthetic Assessment - Anesthesia/Transfusion/Family Hx Anesthesia History: Prior Anesthesia Without Reaction Family History of Anesthesia Reaction: No Transfusion History: No Prior Transfusion(s) Intubation History: Unknown - Review of Systems General: Other (pain in both shoulders) Pulmonary: No Symptoms Cardiovascular: Other (took carvedilol this AM) Gastrointestinal: No Symptoms Neurological: Pre-Existing Deficit (pain in shoulders) Other: Reports: Diabetes (type II, no meds today) - Physical Assessment NPO Status Date: 07/02/17 NPO Status Time: 22:00 ASA Class: 3 Mental Status: Alert & Oriented x3 Airway Class: Mallampati = 1 Dentition: Reports: Normal Dentition Thyro-Mental Finger Breadths: 3 Mouth Opening Finger Breadths: 3 ROM/Head Extension: Full Lungs: Clear to Auscultation, Normal Respiratory Effort Cardiovascular: Regular Rate, Regular Rhythm, No Murmurs - Allergies Allergies/Adverse Reactions: Allergies Allergy/AdvReac Type Severity Reaction Status Date / Time amoxicillin [Amoxicillin] Allergy Rash Verified 07/01/17 08:41 cephalexin Allergy Rash Verified 07/01/17 08:41 Corticosteroids Allergy Depression Verified 07/01/17 08:41 (Glucocorticoids) erythromycin base Allergy Rash Verified 07/01/17 08:41 [Erythromycin Base] morphine Allergy Pain Verified 07/01/17 09:21 Penicillins Allergy Rash Verified 07/01/17 08:41 - Blood Blood Available: No Product(s) Available: None - Anesthesia Plan Free Text/Narrative:: General; sitting position; probable pressors - will do interscalene block at end case due to her cardiac status and effects of sitting position. present for discussion and interview. Pre-Op Medication Ordered: None - Acknowledgements Anesthesia Type Planned: General Anesthesia, Regional Block (probable interscalene discussed with questions answered.) Pt an Appropriate Candidate for the Planned Anesthesia: Yes Alternatives and Risks of Anesthesia Discussed w Pt/Guardian: Yes Pt/Guardian Understands and Agrees with Anesthesia Plan: Yes PreAnesthesia Questionnaire HEENT History: Reports: Allergic Rhinitis, Impaired Vision, Other (See Below) Other HEENT History: wears glasses Cardiovascular History: Reports: Aneurysm, CAD, High Cholesterol, Hypertension, [place], Stents (2015) Other Cardiovascular History: "small" abdominal aortic aneursym Respiratory History: Reports: Other (See Below) Other Respiratory History: seasonal asthma, smoke x 40 yrs Gastrointestinal History: Reports: GERD, Hiatal Hernia Genitourinary History: Reports: None 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: Musculoskeletal History: Reports: RA Neurological History: Reports: None Endocrine/Metabolic History: Reports: Diabetes, Type II - Infectious Disease History Infectious Disease History: Reports: Chicken Pox - Past Surgical History Head Surgeries/Procedures: Reports: None Cardiovascular Surgical History: Reports: Coronary Artery Stent (Plavix; ASA stopped last month) Other Cardiovascular Surgeries/Procedures: angiogram, coronary artery stent placement 2014 GI Surgical History: Reports: Appendectomy, Cholecystectomy Female Surgical History: Reports: Hysterectomy Neurological Surgical History: Reports: Lumbar Spine Other Neurological Surgeries/Procedures: back surgery Other Musculoskeletal Surgeries/Procedures:: back/disc surgery (may 2014) - SUBSTANCE USE Smoking Status *Q: Current Every Day Smoker Tobacco Use Within Last Twelve Months: Cigarettes Second Hand Smoke Exposure: Yes Recreational Drug Use History: No - HOME MEDS Home Medications: Home Meds Losartan [Cozaar] 25 mg PO ASDIRECTED 12/12/14 [History] atorvaSTATin [Lipitor] 40 mg PO DAILY 12/12/14 [History] predniSONE [Prednisone] 5 mg PO BEDTIME 12/12/14 [History] Carvedilol [Coreg] 6.25 mg PO BIDMEALS 08/31/16 [History] metFORMIN [Glucophage XR] 500 mg PO ACDINNER 08/31/16 [History] Albuterol Sulfate [Proair Hfa] 8.5 gm IH ASDIRECTED PRN 12/19/16 [History] Clopidogrel Bisulfate [Plavix] 75 mg PO DAILY 12/19/16 [History] Famotidine 40 mg PO BID PRN 12/19/16 [History] Sucralfate [Carafate] 1 gm PO Q6H PRN 12/19/16 [History] traMADol HCl [Tramadol HCl] 1 - 2 tab PO Q6HR PRN 12/19/16 [History] - CURRENT (IN HOUSE) MEDS Current Meds: Current Medications Hydrocodone Bitart/Acetaminophen ([place] 325-10 Mg) 1 - 2 tab PO Q4H PRN PRN Reason: Pain Clindamycin Phosphate 600 mg/ (Premix) 50 mls @ 100 mls/hr IV ONCALL [facility] Lactated Ringer's (Ringers, Lactated) 1,000 mls @ 100 mls/hr IV ASDIRECTED [facility] Ketorolac Tromethamine (Toradol) 10 mg PO Q6H PRN PRN Reason: Pain Stop: 07/08/17 08:01 Discontinued Medications Fentanyl (Sublimaze) Confirm Administered Dose 250 mcg .ROUTE .STK-MED ONE Stop: 07/03/17 07:05 Glycopyrrolate (Robinul) Confirm Administered Dose 0.4 mg .ROUTE .STK-MED ONE Stop: 07/03/17 07:05 Lidocaine (Xylocaine-Mpf 2%) Confirm Administered Dose 5 ml .ROUTE .STK-MED ONE Stop: 07/03/17 07:05 Midazolam HCl (Versed 1 Mg/Ml) Confirm Administered Dose 2 mg .ROUTE .STK-MED ONE Stop: 07/03/17 07:05 Neostigmine Methylsulfate (Neostigmine) Confirm Administered Dose 5 mg .ROUTE .STK-MED ONE Stop: 07/03/17 07:05 Ondansetron HCl (Zofran) Confirm Administered Dose 4 mg .ROUTE .STK-MED ONE Stop: 07/03/17 07:05 Propofol (Diprivan 20 Ml) Confirm Administered Dose 200 mg .ROUTE .STK-MED ONE Stop: 07/03/17 07:05 Rocuronium [place] (Zemuron) Confirm Administered Dose 100 mg .ROUTE .STK-MED ONE Stop: 07/03/17 07:05
[2017-07-03] MEDS ORDERED: Phenylephrine/Normal Saline 100 MCG/ML 10 ML Syringe ONE (10:14)
[2017-07-03] MEDS ORDERED: ePHEDrine 50 MG/ML SDV ONE (10:14)
[2017-07-03] MEDS ORDERED: Bupivacaine 0.25% 10 ML SDV ONE (10:42)
[2017-07-03] MEDS ORDERED: Bupivacaine 0.5% 10 ML SDV ONE (10:43)
[2017-07-03] MEDS ORDERED: fentaNYL 100 MCG/2 ML SDV ONE (10:48)
[2017-07-03] MEDS ORDERED: Labetalol 100 MG/20 ML MDV ONE (10:54)
[2017-07-03] MEDS ORDERED: EPINEPHrine 1 MG/ML SDV ONE ×3 (11:19→11:32)
--- NOTE | 2017-07-03 12:00 | PCM.OPNOTE ---
- General Post-Op/Procedure Note Date of Surgery/Procedure: 07/03/17 Operative Procedure(s): L shoulder scope with SAD, extensive debridement including biceps tenotomy Post-Op Diagnosis: L shoulder impingement, biceps tendonopathy Anesthesia Technique: General ET Tube Primary Surgeon: Gale Saunders Paint Stockman: Judy Rios in mLs: 25 Condition: Good Free Text/Narrative:: #[id number]
[2017-07-03] MEDS: fentaNYL 100 MCG/2 ML SDV IVPUSH PRN ×3 (12:26→14:15)
[2017-07-03] MEDS: HYDROmorphone 2 MG/ML SDV IVPUSH SCH ×2 (12:50→13:05)
--- NOTE | 2017-07-03 13:24 | OR ---
SURGEON: Gale Saunders MD DATE OF PROCEDURE: 07/03/2017 PREOPERATIVE DIAGNOSES: 1. Left shoulder impingement syndrome. 2. Left shoulder partial rotator cuff tear. POSTOPERATIVE DIAGNOSES: 1. Left shoulder impingement syndrome. 2. Left shoulder partial rotator cuff tear. 3. Left shoulder biceps tendinopathy. PROCEDURES: Left shoulder arthroscopy with: 1. Subacromial decompression with release of coracoacromial ligament and acromioplasty. 2. Extensive debridement including debridement of a degenerative anterior labral tear and biceps tenotomy. INTERFACE ENGINEER: Judy Rios PA-C. ANESTHESIA: General. ESTIMATED BLOOD LOSS: 25 mL. TOURNIQUET TIME: 0 minute. COMPLICATIONS: None. DVT PROPHYLAXIS: PAS boots to bilateral lower extremities. IMPLANTS USED: None. BRIEF HISTORY: Lacy is a 61-year-old female, who has had complaint of progressive left shoulder pain. An MRI did show a tiny partial-thickness tear of the supraspinatus. She had tried conservative treatment including injections, which did not give her lasting relief. Due to her lack of response to conservative treatment, I did recommend surgical intervention. The risks and goals of procedure were discussed with the patient and were documented preoperatively. She agreed to proceed. DESCRIPTION OF PROCEDURE: The patient was properly identified and brought to the operating room. She was transferred from the OR cart and placed on the operating room table in supine position. General anesthesia was administered. After adequate anesthesia was obtained, the patient was placed into a beach-chair type position. Her head was secured. Care was taken to pad all bony prominences. The left upper extremity was then prepped in standard fashion using ChloraPrep solution. It was then sterilely draped. A time-out was performed to ensure correct site and procedure. Preoperative antibiotics were given. The surgical site had been marked preoperatively. A marking pen was then used to identify the bony landmarks. Approximately 30 mL of normal saline were introduced into the glenohumeral joint. A posterior portal was established. Blunt trocar and cannula were introduced into the glenohumeral joint. An anterior portal was then established within the rotator interval. She did have some synovitis noted within the rotator interval. The subscapularis was visualized and probed and found to be intact. No loose bodies were identified in the subscapular recess. The anterior labrum was then identified. Degenerative anterior labral tear was identified. This was resected with electrocautery. The attachment of the biceps tendon to the superior labrum was then visualized. This peeled back more than expected. The synovitis was noted around the biceps attachment as well. The biceps was pulled into the joint and minor longitudinal fissures were noted in the distal biceps tendon. I elected to proceed with a biceps tenotomy. This was performed with electrocautery. The biceps retracted easily into the bicipital tendon sheath. The posterior labrum appeared intact. Both the glenoid and humeral head were visualized. No degenerative changes were noted. I then entered the axillary pouch. Synovitis was present, however, no loose bodies were identified. The arm was then brought into an abducted and externally rotated position. The bare area was noted posteriorly. As I progressed anteriorly, a small 1 to 2 cm partial thickness tear of the articular surface of the rotator cuff was identified. This was debrided. No full-thickness tear was appreciated. The arm was then brought back into a neutral position. The blunt trocar and cannula were then introduced into the subacromial space. A lateral portal incision was made. Extensive hemorrhagic bursitis was noted. A shaver was used to clear portion of the bursitis. Electrocautery was used to remove the remainder of the bursa. This bursa was quite hemorrhagic and we did spend quite a bit of time helping to control the bleeding. The patient had recently discontinued her Plavix and was currently taking an aspirin. Once hemostasis was achieved, extensive bursectomy was performed. The rotator cuff was visualized and probed and was not found to have any softening. The coracoacromial ligament was then released anteriorly off the acromion. She did have a downsloping acromion, which appeared to be causing some impingement. A 5.0 mm barb was used to resect a portion of the acromion. This provided good decompression of the subacromial space. The instruments were then removed from the shoulder. The portal sites were closed with 3-0 nylon. Xeroform gauze was placed over the wound, and a bulky dressing was applied. At the completion of the case, the patient was turned over to Anesthesia for placement of an interscalene block. TIM / SAHARA /[id number]
--- NOTE | 2017-07-03 13:33 | PCM.POSTAN ---
POST ANESTHESIA ASSESSMENT - MENTAL STATUS Mental Status: Alert, Oriented - RESPIRATORY Respiratory Status: Respiratory Rate WNL, Airway Patent, O2 Saturation Stable - CARDIOVASCULAR CV Status: Pulse Rate WNL, Blood Pressure Stable - GASTROINTESTINAL GI Status: No Symptoms - PAIN Pain Score: 5 (required dilaudid in PAR; block unsuccessful) - POST OP HYDRATION Hydration Status: Adequate & Stable - OBSERVATIONS Free Text/Narrative:: Will need PO meds for home course. Explained that block was unsuccessful to .
[2017-07-03] MEDS ORDERED: Acetaminophen/oxyCODONE 325-5 MG Tab PO PRN (13:45)
[2017-07-03] MEDS ORDERED: Acetaminophen/oxyCODONE 325-5 MG Tab ONE (13:54)
[2017-07-03] MEDS ORDERED: Ketorolac 30 MG/ML SDV IVPUSH ONE (14:06)
--- NOTE | 2017-07-03 15:30 | PCM48HPAN ---
Post Anesthesia Note - EVALUATION WITHIN 48HRS OF ANESTHETIC Vital Signs in Normal Range: Yes Patient Participated in Evaluation: Yes Respiratory Function Stable: Yes Airway Patent: Yes Cardiovascular Function Stable: Yes Hydration Status Stable: Yes Pain Control Satisfactory: Yes Nausea and Vomiting Control Satisfactory: Yes Mental Status Recovered: Yes Resp Rate: 18 - COMMENTS/OBSERVATIONS Free Text/Narrative:: discharged to home in good condition. Seen earlier but was unable to write this note.
[2017-07-03 17:51] VITALS: BP 142/60
== END 2017-07-03 15:30 | disposition home or self-care (01) ==
LOC: MW.SDS 07:23
PROVIDERS: ATTEND Orthopaedic Surgery
DX: M75.112 Incomplete rotator cuff tear or rupture of left shoulder, not specified as traumatic (principal); M75.42 Impingement syndrome of left shoulder; M75.22 Bicipital tendinitis, left shoulder; I71.4 Abdominal aortic aneurysm, without rupture; J30.9 Allergic rhinitis, unspecified; M19.90 Unspecified osteoarthritis, unspecified site; M47.22 Other spondylosis with radiculopathy, cervical region; G89.4 Chronic pain syndrome; I25.10 Atherosclerotic heart disease of native coronary artery without angina pectoris; K21.9 Gastro-esophageal reflux disease without esophagitis; I10 Essential (primary) hypertension; E78.00 Pure hypercholesterolemia, unspecified; G43.909 Migraine, unspecified, not intractable, without status migrainosus; E04.2 Nontoxic multinodular goiter; G60.9 Hereditary and idiopathic neuropathy, unspecified; M06.9 Rheumatoid arthritis, unspecified; E11.9 Type 2 diabetes mellitus without complications; F17.210 Nicotine dependence, cigarettes, uncomplicated; Z95.5 Presence of coronary angioplasty implant and graft; Z88.1 Allergy status to other antibiotic agents; Z88.5 Allergy status to narcotic agent; Z88.2 Allergy status to sulfonamides; Z88.8 Allergy status to other drugs, medicaments and biological substances; Z79.899 Other long term (current) drug therapy; Z79.02 Long term (current) use of antithrombotics/antiplatelets; Z79.84 Long term (current) use of oral hypoglycemic drugs; Z90.89 Acquired absence of other organs; Z90.49 Acquired absence of other specified parts of digestive tract; Z98.51 Tubal ligation status; Z90.710 Acquired absence of both cervix and uterus; Z98.890 Other specified postprocedural states; Z79.82 Long term (current) use of aspirin
CPT/HCPCS: 29823; 88304; A9270; J0171; J1170; J1885; J2250; J2405; J3010; J7120; J2704

== ENCOUNTER 2017-12-27 13:09 | Emergency (ER) | payer BC ==
--- NOTE | 2017-12-27 14:31 | EDM.PDOC ---
ED HPI GENERAL MEDICAL PROBLEM - General Chief Complaint: General Stated Complaint: MOUTH BLEEDING Time Seen by Provider: 12/27/17 13:10 Source of Information: Reports: Patient History Limitations: Reports: No Limitations - History of Present Illness INITIAL COMMENTS - FREE TEXT/NARRATIVE: History of present illness: []Patient cut the roof of her mouth with a straw and could not get the bleeding to stop. Patient is on blood thinners. By time I saw the patient, bleeding was controlled. Review of systems: As per history of present illness and below otherwise all systems reviewed and negative. Past medical history: As per history of present illness and as reviewed below otherwise noncontributory. Surgical history: As per history of present illness and as reviewed below otherwise noncontributory. Social history: No reported history of drug or alcohol abuse. Family history: As per history of present illness and as reviewed below otherwise noncontributory. Physical exam: General: Well developed, well nourished in NAD HEENT: 1 laceration hard of hard palate just behind her front teeth no active bleeding, pupils reactive, negative for conjunctival pallor or scleral icterus, mucous membranes moist, throat clear, neck supple, nontender, trachea midline. Lungs: Clear to auscultation, breath sounds equal bilaterally, chest nontender. Heart: S1S2, regular, negative for clicks, rubs, or JVD. Abdomen: Soft, nondistended, nontender. Negative for masses or hepatosplenomegaly. Negative for costovertebral tenderness. Pelvis: Stable nontender. Genitourinary: Deferred. Rectal: Deferred. Extremities: Atraumatic, negative for cords or calf pain. Neurovascular unremarkable. Neuro: Awake, alert, oriented. Cranial nerves II through XII unremarkable. Cerebellum unremarkable. Motor and sensory unremarkable throughout. Exam nonfocal. Skin:warm and dry Diagnostics: Patient refused any treatment or workup Therapeutics: none ED Course: Unremarkable Impression: Laceration hard palate Prescriptions: None Plan: If bleeding recurs hold continuous pressure until it subsides. Definitive disposition and diagnosis as appropriate pending reevaluation and review of above. Oral/Mouth Pain Score (Numeric/FACES): 10 - Related Data Allergies Allergy/AdvReac Type Severity Reaction Status Date / Time acetaminophen [From Percocet] Allergy Swelling Verified 12/27/17 13:52 amoxicillin [Amoxicillin] Allergy Rash Verified 07/01/17 08:41 cephalexin Allergy Rash Verified 07/01/17 08:41 Corticosteroids Allergy Depression Verified 07/01/17 08:41 (Glucocorticoids) erythromycin base Allergy Rash Verified 07/01/17 08:41 [Erythromycin Base] morphine Allergy Pain Verified 07/01/17 09:21 oxycodone [From Percocet] Allergy Swelling Verified 12/27/17 13:52 Penicillins Allergy Rash Verified 07/01/17 08:41 Home Meds: Home Meds Losartan [Cozaar] 25 mg PO ASDIRECTED 12/12/14 [History] atorvaSTATin [Lipitor] 40 mg PO DAILY 12/12/14 [History] predniSONE [Prednisone] 5 mg PO BEDTIME 12/12/14 [History] Carvedilol [Coreg] 6.25 mg PO BIDMEALS 08/31/16 [History] metFORMIN [Glucophage XR] 500 mg PO ACDINNER 08/31/16 [History] Albuterol Sulfate [Proair Hfa] 8.5 gm IH ASDIRECTED PRN 12/19/16 [History] Clopidogrel Bisulfate [Plavix] 75 mg PO DAILY 12/19/16 [History] Famotidine 40 mg PO BID PRN 12/19/16 [History] Past Medical History HEENT History: Reports: Impaired Vision Other HEENT History: wears glasses Cardiovascular History: Reports: CAD, High Cholesterol, Hypertension, Stents Other Cardiovascular History: "small" abdominal aortic aneursym Respiratory History: Reports: COPD, SOB Other Respiratory History: seasonal asthma, smoke x 40 yrs Gastrointestinal History: Reports: GERD, Hiatal Hernia Genitourinary History: Reports: None 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: Musculoskeletal History: Reports: RA Neurological History: Reports: None Endocrine/Metabolic History: Reports: Diabetes, Type II - Infectious Disease History Infectious Disease History: Reports: Chicken Pox, Shingles - Past Surgical History GI Surgical History: Reports: Appendectomy, Cholecystectomy Female Surgical History: Reports: Hysterectomy Neurological Surgical History: Reports: Lumbar Spine Other Neurological Surgeries/Procedures: back surgery Other Musculoskeletal Surgeries/Procedures:: back/disc surgery (may 2014) Social & Family History - Family History Family Medical History: Noncontributory - Tobacco Use Smoking Status *Q: Current Every Day Smoker Years of Tobacco use: 30 Packs/Tins Daily: 0.5 - Caffeine Use Caffeine Use: Reports: Soda Caffeine Use Comment: 1 cup daily - Recreational Drug Use Recreational Drug Use: No ED ROS GENERAL - Review of Systems Review Of Systems: ROS reveals no pertinent complaints other than HPI. ED EXAM, GENERAL - Physical Exam Exam: See Below (See history of present illness) Course - Vital Signs Last Recorded V/S: Last Vital Signs Temp 96.7 F 12/27/17 13:47 Pulse 83 12/27/17 13:47 Resp 18 12/27/17 13:47 BP 145/86 H 12/27/17 13:47 Pulse Ox 96 12/27/17 13:47 Departure - Departure Time of Disposition: 14:31 Disposition: Home, Self-Care 01 Condition: Good Clinical Impression: Laceration - Discharge Information *PRESCRIPTION DRUG MONITORING PROGRAM REVIEWED*: No *COPY OF PRESCRIPTION DRUG MONITORING REPORT IN PATIENT ESME: No Referrals: PCP,None [Primary Care Provider] - Forms: ED Department Discharge Additional Instructions: The following information is given to patients seen in the emergency department who are being discharged to home. This information is to outline your options for follow-up care. We provide all patients seen in our emergency department with a follow-up referral. The need for follow-up, as well as the timing and circumstances, are variable depending upon the specifics of your emergency department visit. If you don't have a primary care physician on staff, we will provide you with a referral. We always advise you to contact your personal physician following an emergency department visit to inform them of the circumstance of the visit and for follow-up with them and/or the need for any referrals to a consulting specialist. The emergency department will also refer you to a specialist when appropriate. This referral assures that you have the opportunity for follow-up care with a specialist. All of these measure are taken in an effort to provide you with optimal care, which includes your follow-up. Under all circumstances we always encourage you to contact your private physician who remains a resource for coordinating your care. When calling for follow-up care, please make the office aware that this follow-up is from your recent emergency room visit. If for any reason you are refused follow-up, please contact the [facility] at and asked to speak to the emergency department charge nurse. [facility] [address] [place] [id number]
[2017-12-27 14:44] VITALS: BP 143/84
== END 2017-12-27 14:43 | disposition home or self-care (01) ==
LOC: MW.ED 13:09
DX: S01.512A Laceration without foreign body of oral cavity, initial encounter (principal); F17.210 Nicotine dependence, cigarettes, uncomplicated; I10 Essential (primary) hypertension; E11.9 Type 2 diabetes mellitus without complications; K21.9 Gastro-esophageal reflux disease without esophagitis; E78.00 Pure hypercholesterolemia, unspecified; Z79.84 Long term (current) use of oral hypoglycemic drugs; Z79.899 Other long term (current) drug therapy; Z79.02 Long term (current) use of antithrombotics/antiplatelets; Z88.1 Allergy status to other antibiotic agents; Z88.6 Allergy status to analgesic agent; W22.8XXA Striking against or struck by other objects, initial encounter
CPT/HCPCS: 99283

== ENCOUNTER 2018-04-21 09:56 | Emergency (ER) | payer BC ==
[2018-04-21] MEDS ORDERED: Sodium Chloride 0.9% 10 ML Syringe FLUSH PRN (10:13)
[2018-04-21] MEDS ORDERED: Aspirin 81 MG Tab.Chew PO ONE (10:13)
[2018-04-21] MEDS ORDERED: Sodium Chloride 0.9% 2.5 ML Syringe FLUSH PRN (10:13)
[2018-04-21] MEDS ORDERED: Famotidine 20 MG/2 ML SDV IVPUSH ONE (10:13)
--- NOTE | 2018-04-21 10:13 | EDM.PDOC ---
ED HPI GENERAL MEDICAL PROBLEM - General Chief Complaint: Chest Pain Stated Complaint: SHORTNESS OF BREATH, HIGH BP Time Seen by Provider: 04/21/18 10:11 Source of Information: Reports: Patient History Limitations: Reports: No Limitations - History of Present Illness INITIAL COMMENTS - FREE TEXT/NARRATIVE: HISTORY AND PHYSICAL: []62-year-old female presenting with midsternal pain shortness of breath History of Present Illness: []Patient states that for the last 2 weeks she's been waking up at night with her pillow drenched sweat She awakened about 4:00 this morning having midsternal chest pain She relates to having 2 stents placed previously by Dr. Quiros (2014) History of hypertension History of CAD Patient is a type II diabetic She is a smoker Patient's regular provider is Dr. Small Review of Systems: As per history of present illness and below otherwise all systems reviewed and negative. Past medical history: As per history of present illness and as reviewed below otherwise noncontributory. Surgical history: As per history of present illness and as reviewed below otherwise noncontributory. Social history: No reported history of drug or alcohol abuse. Family history: As per history of present illness and as reviewed below otherwise noncontributory. Physical exam: HEENT: Atraumatic, normocehpalic, pupils reactive, negative for conjunctival pallor or scleral icterus, mucous membranes moist, throat clear, neck supple, nontender, trachea midline. Lungs: Clear to auscultation, breath sounds equal bilaterally, chest non tender. Heart: S1S2, regular, negative for clicks, rubs, or JVD. Abdomen: Soft, nondistended, nontender. Negative for masses or hepatossplenmegaly. Negative for costovertebral tenderness. Pelvis: Stable nontender. Genitourinary: Deferred. Rectal: Deferred Extremities: Atraumatic, negative for cords or calf pain. Neurovascular unremarkable. Neuro: Awake, alert, oriented. Cranial nerves II through XII unremarkable. Cerebellum unremarkable. Motor and sensory unremarkable throughout. Exam nonfocal. Dr. Chavira has been involved in discussion of this case Discussed her case with Dr. Carmen in [place] Talk to the patient regarding her symptoms chest pain that she is needing follow -up with Dr. Hernandez Diagnostics: []CBC CMP troponin d-dimer EKG chest x-ray Therapeutics: []Nitrostat IV fluid Aspirin Pepcid Impression: []Acute coronary syndrome Plan: []Transfer her ground ambulance to [facility] emergency room Definitive disposition and diagnosis as appropriate pending reevaluation and review of above. Onset: Today, Sudden Duration: Hour(s): Location: Reports: Chest Chest Pain Score (Numeric/FACES): 8 - Related Data Allergies Allergy/AdvReac Type Severity Reaction Status Date / Time acetaminophen [From Percocet] Allergy Swelling Verified 12/27/17 13:52 amoxicillin [Amoxicillin] Allergy Rash Verified 07/01/17 08:41 cephalexin Allergy Rash Verified 07/01/17 08:41 Corticosteroids Allergy Depression Verified 07/01/17 08:41 (Glucocorticoids) erythromycin base Allergy Rash Verified 07/01/17 08:41 [Erythromycin Base] morphine Allergy Pain Verified 07/01/17 09:21 oxycodone [From Percocet] Allergy Swelling Verified 12/27/17 13:52 Penicillins Allergy Rash Verified 07/01/17 08:41 Home Meds: Home Meds Losartan [Cozaar] 25 mg PO ASDIRECTED 12/12/14 [History] atorvaSTATin [Lipitor] 40 mg PO DAILY 12/12/14 [History] predniSONE [Prednisone] 5 mg PO BEDTIME 12/12/14 [History] Carvedilol [Coreg] 6.25 mg PO BIDMEALS 08/31/16 [History] metFORMIN [Glucophage XR] 500 mg PO ACDINNER 08/31/16 [History] Albuterol Sulfate [Proair Hfa] 8.5 gm IH ASDIRECTED PRN 12/19/16 [History] Clopidogrel Bisulfate [Plavix] 75 mg PO DAILY 12/19/16 [History] Famotidine 40 mg PO BID PRN 12/19/16 [History] Past Medical History HEENT History: Reports: Impaired Vision Other HEENT History: wears glasses Cardiovascular History: Reports: CAD, High Cholesterol, Hypertension, Stents Other Cardiovascular History: "small" abdominal aortic aneursym Respiratory History: Reports: COPD, SOB Other Respiratory History: seasonal asthma, smoke x 40 yrs Gastrointestinal History: Reports: GERD, Hiatal Hernia Genitourinary History: Reports: None [employer] History: Reports: Musculoskeletal History: Reports: RA Neurological History: Reports: None Endocrine/Metabolic History: Reports: Diabetes, Type II - Infectious Disease History Infectious Disease History: Reports: Chicken Pox, Shingles - Past Surgical History GI Surgical History: Reports: Appendectomy, Cholecystectomy Female Surgical History: Reports: Hysterectomy Neurological Surgical History: Reports: Lumbar Spine Other Neurological Surgeries/Procedures: back surgery Other Musculoskeletal Surgeries/Procedures:: back/disc surgery (may 2014) Social & Family History - Family History Family Medical History: Noncontributory - Caffeine Use Caffeine Use: Reports: Soda Caffeine Use Comment: 1 cup daily ED ROS GENERAL - Review of Systems Review Of Systems: ROS reveals no pertinent complaints other than HPI. ED EXAM, GENERAL - Physical Exam Exam: See Below (see dictation) EKG INTERPRETATION EKG Date: 04/21/18 Time: 09:57 Rhythm: NSR Comparison: No Change Course - Vital Signs Last Recorded V/S: Last Vital Signs Temp 36.7 C 04/21/18 10:02 Pulse 66 04/21/18 10:55 Resp 18 04/21/18 10:55 BP 135/81 04/21/18 10:55 Pulse Ox 98 04/21/18 10:55 - Orders/Labs/Meds Orders: Active Orders 24 hr Category Date Time Status Cardiac Monitoring [RC] . DIRECTED Care 04/21/18 10:13 Active EKG Documentation Completion [RC] STAT Care 04/21/18 10:14 Active Oxygen Therapy [RC] ASDIRECTED Care 04/21/18 10:13 Active Pulse Oximetry [RC] ASDIRECTED Care 04/21/18 10:13 Active CULTURE BLOOD [BC] Stat Lab 04/21/18 09:50 Results CULTURE BLOOD [BC] Stat Lab 04/21/18 10:05 Received UA W/MICROSCOPIC [URIN] Stat Lab 04/21/18 10:14 Ordered Nitroglycerin [Nitrostat] Med 04/21/18 10:16 Active 0.4 mg SL Q5M PRN Sodium Chloride 0.9% [Saline Flush] Med 04/21/18 10:13 Active 10 ml FLUSH ASDIRECTED PRN Sodium Chloride 0.9% [Saline Flush] Med 04/21/18 10:13 Active 2.5 ml FLUSH ASDIRECTED PRN Blood Culture x2 Reflex Set [OM.PC] Stat Oth 04/21/18 10:25 Ordered Saline Lock Insert [OM.PC] Stat Oth 04/21/18 10:13 Ordered Medication Orders Nitroglycerin (Nitrostat) 0.4 mg SL Q5M PRN PRN Reason: Chest Pain Last Admin: 04/21/18 10:27 Dose: 0.4 mg Admin: 04/21/18 10:21 Dose: 0.4 mg Sodium Chloride (Saline Flush) 10 ml FLUSH ASDIRECTED PRN PRN Reason: Keep Vein Open Last Admin: 04/21/18 10:21 Dose: 10 ml Sodium Chloride (Saline Flush) 2.5 ml FLUSH ASDIRECTED PRN PRN Reason: Keep Vein Open Last Admin: 04/21/18 10:21 Dose: 2.5 ml Labs: Laboratory Tests 04/21/18 04/21/18 04/21/18 Range/Units 10:05 10:05 10:05 WBC 10.09 (4.0-11.0) K/uL RBC 5.07 (4.30-5.90) M/uL Hgb 14.7 (12.0-16.0) g/dL Hct 44.5 (36.0-46.0) % MCV 87.8 (80.0-98.0) fL MCH 29.0 (27.0-32.0) pg MCHC 33.0 (31.0-37.0) g/dL RDW Std Deviation 50.3 (28.0-62.0) fl RDW Coeff of Dorene 16 H (11.0-15.0) % Plt Count 213 (150-400) K/uL MPV 9.50 (7.40-12.00) fL Neut % (Auto) 66.5 (48.0-80.0) % Lymph % (Auto) 26.8 (16.0-40.0) % [place] % (Auto) 5.6 (0.0-15.0) % Eos % (Auto) 0.7 (0.0-7.0) % Baso % (Auto) 0.4 (0.0-1.5) % Neut # (Auto) 6.7 H (1.4-5.7) K/uL Lymph # (Auto) 2.7 H (0.6-2.4) K/uL [place] # (Auto) 0.6 (0.0-0.8) K/uL Eos # (Auto) 0.1 (0.0-0.7) K/uL Baso # (Auto) 0.0 (0.0-0.1) K/uL Nucleated RBC % 0.0 /100WBC Nucleated RBCs # 0 K/uL INR 0.96 D-Dimer, Quantitative (0.0-0.52) mg/LFEU Sodium 140 (136-145) mmol/L Potassium 4.0 (3.5-5.1) mmol/L Chloride 107 (98-107) mmol/L Carbon Dioxide 22.8 (21.0-32.0) mmol/L BUN 14 (7.0-18.0) mg/dL Creatinine 0.6 (0.6-1.0) mg/dL Est Cr Clr Drug Dosing 93.33 mL/min Estimated GFR (MDRD) > 60.0 ml/min Glucose 111 H (74-106) mg/dL Calcium 9.7 (8.5-10.1) mg/dL Total Bilirubin 0.9 (0.2-1.0) mg/dL AST 21 (15-37) IU/L ALT 38 (14-63) IU/L Alkaline Phosphatase 98 (46-116) U/L Troponin I < 0.050 (0.000-0.056) ng/mL Total Protein 7.6 (6.4-8.2) g/dL Albumin 3.5 (3.4-5.0) g/dL Globulin 4.1 H (2.6-4.0) g/dL Albumin/Globulin Ratio 0.9 (0.9-1.6) Amylase 57 (25-115) U/L Lipase 138 (73-393) U/L 04/21/18 Range/Units 10:05 WBC (4.0-11.0) K/uL RBC (4.30-5.90) M/uL Hgb (12.0-16.0) g/dL Hct (36.0-46.0) % MCV (80.0-98.0) fL MCH (27.0-32.0) pg MCHC (31.0-37.0) g/dL RDW Std Deviation (28.0-62.0) fl RDW Coeff of Dorene (11.0-15.0) % Plt Count (150-400) K/uL MPV (7.40-12.00) fL Neut % (Auto) (48.0-80.0) % Lymph % (Auto) (16.0-40.0) % [place] % (Auto) (0.0-15.0) % Eos % (Auto) (0.0-7.0) % Baso % (Auto) (0.0-1.5) % Neut # (Auto) (1.4-5.7) K/uL Lymph # (Auto) (0.6-2.4) K/uL [place] # (Auto) (0.0-0.8) K/uL Eos # (Auto) (0.0-0.7) K/uL Baso # (Auto) (0.0-0.1) K/uL Nucleated RBC % /100WBC Nucleated RBCs # K/uL INR D-Dimer, Quantitative 0.37 (0.0-0.52) mg/LFEU Sodium (136-145) mmol/L Potassium (3.5-5.1) mmol/L Chloride (98-107) mmol/L Carbon Dioxide (21.0-32.0) mmol/L BUN (7.0-18.0) mg/dL Creatinine (0.6-1.0) mg/dL Est Cr Clr Drug Dosing mL/min Estimated GFR (MDRD) ml/min Glucose (74-106) mg/dL Calcium (8.5-10.1) mg/dL Total Bilirubin (0.2-1.0) mg/dL AST (15-37) IU/L ALT (14-63) IU/L Alkaline Phosphatase (46-116) U/L Troponin I (0.000-0.056) ng/mL Total Protein (6.4-8.2) g/dL Albumin (3.4-5.0) g/dL Globulin (2.6-4.0) g/dL Albumin/Globulin Ratio (0.9-1.6) Amylase (25-115) U/L Lipase (73-393) U/L Meds: Medications Generic Name Dose Route Start Last Admin Trade Name Freq PRN Reason Stop Dose Admin Nitroglycerin 0.4 mg 04/21/18 10:16 04/21/18 10:27 Nitrostat SL 0.4 mg Q5M PRN Administration Chest Pain Sodium Chloride 10 ml 04/21/18 10:13 04/21/18 10:21 Saline Flush FLUSH 10 ml ASDIRECTED PRN Administration Keep Vein Open Sodium Chloride 2.5 ml 04/21/18 10:13 04/21/18 10:21 Saline Flush FLUSH 2.5 ml ASDIRECTED PRN Administration Keep Vein Open Discontinued Medications Generic Name Dose Route Start Last Admin Trade Name Leslie PRN Reason Stop Dose Admin Aspirin 324 mg 04/21/18 10:13 04/21/18 10:21 Aspirin PO 04/21/18 10:14 324 mg ONETIME ONE Administration Famotidine 20 mg 04/21/18 10:13 04/21/18 10:21 Pepcid IVPUSH 04/21/18 10:14 20 mg ONETIME ONE Administration Sodium Chloride 1,000 mls @ 999 mls/hr 04/21/18 10:16 04/21/18 10:21 Normal Saline IV 04/21/18 11:16 999 mls/hr STAT ONE Administration Ketorolac Tromethamine 30 mg 04/21/18 10:48 Toradol IVPUSH 04/21/18 10:49 ONETIME ONE Nitroglycerin 1 gm 04/21/18 10:35 04/21/18 10:41 Nitro-Bid 2% TOP 04/21/18 10:36 1 gm ONETIME ONE Administration Departure - Departure Time of Disposition: 11:27 Disposition: DC/Tfer to Acute Hospital 02 Reason for Transfer *Q: Primary PCI Indicated Condition: Good Clinical Impression: ACS (acute coronary syndrome) Referrals: Alfred Small MD [Primary Care Provider] - Forms: ED Department Discharge - My Orders Last 24 Hours: My Active Orders 04/21/18 09:50 CULTURE BLOOD [BC] Stat 04/21/18 10:05 CULTURE BLOOD [BC] Stat 04/21/18 10:13 Cardiac Monitoring [RC] . DIRECTED Oxygen Therapy [RC] ASDIRECTED Pulse Oximetry [RC] ASDIRECTED Sodium Chloride 0.9% [Saline Flush] 10 ml FLUSH ASDIRECTED PRN Sodium Chloride 0.9% [Saline Flush] 2.5 ml FLUSH ASDIRECTED PRN Saline Lock Insert [OM.PC] Stat 04/21/18 10:14 EKG Documentation Completion [RC] STAT UA W/MICROSCOPIC [URIN] Stat 04/21/18 10:16 Nitroglycerin [Nitrostat] 0.4 mg SL Q5M PRN 04/21/18 10:25 Blood Culture x2 Reflex Set [OM.PC] Stat - Assessment/Plan Last 24 Hours: My Active Orders 04/21/18 09:50 CULTURE BLOOD [BC] Stat 04/21/18 10:05 CULTURE BLOOD [BC] Stat 04/21/18 10:13 Cardiac Monitoring [RC] . DIRECTED Oxygen Therapy [RC] ASDIRECTED Pulse Oximetry [RC] ASDIRECTED Sodium Chloride 0.9% [Saline Flush] 10 ml FLUSH ASDIRECTED PRN Sodium Chloride 0.9% [Saline Flush] 2.5 ml FLUSH ASDIRECTED PRN Saline Lock Insert [OM.PC] Stat 04/21/18 10:14 EKG Documentation Completion [RC] STAT UA W/MICROSCOPIC [URIN] Stat 04/21/18 10:16 Nitroglycerin [Nitrostat] 0.4 mg SL Q5M PRN 04/21/18 10:25 Blood Culture x2 Reflex Set [OM.PC] Stat
[2018-04-21] MEDS ORDERED: Sodium Chloride 0.9% 1,000 ML IV ONE ×2 (10:16→11:37)
[2018-04-21] MEDS: Nitroglycerin 0.4 MG Tab.SL SL PRN ×2 (10:21→10:27)
[2018-04-21] MEDS ORDERED: Nitroglycerin 2% Oint 1 GM UD Packet TOP ONE (10:35)
[2018-04-21] MEDS ORDERED: Ketorolac 30 MG/ML SDV IVPUSH ONE (10:48)
[2018-04-21 10:52] LABS: CHLORIDE,CL 107 mmol/L (98-107); SODIUM,NA 140 mmol/L (136-145)
--- NOTE | 2018-04-21 11:21 | CR ---
EXAMINATION: Portable chest radiograph. HISTORY: Sternal pain. FINDINGS: The trachea is midline. The cardiomediastinal silhouette is within normal limits. No pulmonary infiltrates, effusions or pneumothorax. Osseous structures appear unremarkable. IMPRESSION: No acute cardiopulmonary process.
[2018-04-21 11:48] VITALS: BP 146/85
[2018-04-21] MEDS ORDERED: LORazepam 2 MG/ML SDV IVPUSH ONE (11:50)
== END 2018-04-21 12:33 ==
LOC: MW.ED 09:56
DX: I24.9 Acute ischemic heart disease, unspecified (principal); E11.9 Type 2 diabetes mellitus without complications; I10 Essential (primary) hypertension; F17.210 Nicotine dependence, cigarettes, uncomplicated; Z95.5 Presence of coronary angioplasty implant and graft; Z79.899 Other long term (current) drug therapy; Z88.8 Allergy status to other drugs, medicaments and biological substances; Z88.1 Allergy status to other antibiotic agents; Z88.0 Allergy status to penicillin; Z79.84 Long term (current) use of oral hypoglycemic drugs
CPT/HCPCS: 71045; 80053; 81001; 82150; 83690; 84484; 85025; 85379; 85610; 87040; 93005; 96361; 96374; 96375; 99285; A9270; J2060; J3490; J7040

== ENCOUNTER 2022-07-25 11:13 | Emergency (ER) | payer MEDICARE, BC ==
[2022-07-25] MEDS ORDERED: Sodium Chloride 0.9% 10 ML Syringe FLUSH PRN (11:40)
[2022-07-25] MEDS ORDERED: Sodium Chloride 0.9% 2.5 ML Syringe FLUSH PRN (11:40)
[2022-07-25] MEDS ORDERED: Labetalol 100 MG/20 ML MDV IVPUSH STA (11:41)
[2022-07-25 12:10] LABS: CARBON DIOXIDE,CO2 26.2 mmol/L (21.0-32.0); POTASSIUM,K 3.6 mmol/L (3.5-5.1)
[2022-07-25 12:47] VITALS: BP 160/81; PULSE 76
== END 2022-07-25 14:30 | disposition home or self-care (01) ==
LOC: MW.ED 11:13
DX: K62.5 Hemorrhage of anus and rectum (principal); K57.30 Diverticulosis of large intestine without perforation or abscess without bleeding; I44.0 Atrioventricular block, first degree; I71.43 Infrarenal abdominal aortic aneurysm, without rupture; I10 Essential (primary) hypertension; E11.9 Type 2 diabetes mellitus without complications; I25.10 Atherosclerotic heart disease of native coronary artery without angina pectoris; J44.9 Chronic obstructive pulmonary disease, unspecified; E78.00 Pure hypercholesterolemia, unspecified; Z95.5 Presence of coronary angioplasty implant and graft; Z88.0 Allergy status to penicillin; Z88.1 Allergy status to other antibiotic agents; Z88.5 Allergy status to narcotic agent; Z88.8 Allergy status to other drugs, medicaments and biological substances; Z79.899 Other long term (current) drug therapy; Z72.0 Tobacco use; Z79.02 Long term (current) use of antithrombotics/antiplatelets
CPT/HCPCS: 36415; 74177; 80053; 81003; 83690; 83735; 85025; 93005; 96374; 99285; J3490; 93010; 99283

== ENCOUNTER 2022-10-12 14:25 | Emergency (ER) | payer MEDICARE, BC ==
[2022-10-12] MEDS ORDERED: Albuterol/Ipratropium 3.0-0.5 MG/3 ML Neb Soln NEB ONE (14:53)
[2022-10-12] MEDS ORDERED: Lidocaine 1% 5 ML VIAL ONE (14:55)
[2022-10-12] MEDS: methylPREDNISolone Sodium Succinate 125 MG/2 ML SDV IVPUSH ONE ×2 (15:08→16:40)
[2022-10-12 15:25] LABS: BASE EXCESS VENOUS 2.6 (-2.0-3.0); PH,VENOUS 7.45 (7.31-7.41)
[2022-10-12 15:27] LABS: BASOPHILS PERCENT AUTO 0.3 % (0.0-1.5); EOSINOPHILS ABSOLUTE AUTO 0.1 K/uL (0.0-0.7); EOSINOPHILS PERCENT AUTO 0.7 % (0.0-7.0); HEMATOCRIT 41.1 % (36.0-46.0); HEMOGLOBIN 13.7 g/dL (12.0-16.0); LYMPHOCYTES ABSOLUTE AUTO 2.6 K/uL (0.6-2.4); LYMPHOCYTES PERCENT AUTO 24.6 % (16.0-40.0); MEAN CORPUSCULAR HGB CONC 33.3 g/dL (31.0-37.0); MEAN CORPUSCULAR VOLUME 83.9 fL (80.0-98.0); MONOCYTES PERCENT AUTO 9.4 % (0.0-15.0); NEUTROPHILS ABSOLUTE AUTO 6.8 K/uL (1.4-5.7); NRBC ABSOLUTE 0 K/uL; PLATELET COUNT,PLT 233 K/uL (150-400)
[2022-10-12 15:53] LABS: A/G RATIO 0.7 (0.9-1.6); ALBUMIN 2.9 g/dL (3.4-5.0); BILIRUBIN TOTAL 0.9 mg/dL (0.2-1.0); C-REACTIVE PROTEIN 0.7 mg/dL (0.00-0.90); CALCIUM 8.9 mg/dL (8.5-10.1); CARBON DIOXIDE,CO2 24.1 mmol/L (21.0-32.0); CREATININE 0.5 mg/dL (0.6-1.0); EST CRCL DRUG DOSING (CG) 100.81 mL/min; MAGNESIUM 1.9 mg/dL (1.8-2.4); POTASSIUM,K 3.7 mmol/L (3.5-5.1); PROTEIN TOTAL,TP 7.1 g/dL (6.4-8.2)
[2022-10-12] MEDS: predniSONE 20 MG Tab PO STA ×2 (15:58→16:44)
[2022-10-12] MEDS ORDERED: Azithromycin 500 MG in Sodium Chloride 0.9% 250 ML IV ONE (16:12)
[2022-10-12 16:44] VITALS: BP 105/85; PULSE 79
== END 2022-10-12 16:49 | disposition home or self-care (01) ==
LOC: MW.ED 14:25
DX: J45.909 Unspecified asthma, uncomplicated (principal); R09.02 Hypoxemia; I10 Essential (primary) hypertension; E11.9 Type 2 diabetes mellitus without complications; I25.10 Atherosclerotic heart disease of native coronary artery without angina pectoris; Z88.0 Allergy status to penicillin; Z88.1 Allergy status to other antibiotic agents; Z88.8 Allergy status to other drugs, medicaments and biological substances; Z95.5 Presence of coronary angioplasty implant and graft; Z79.84 Long term (current) use of oral hypoglycemic drugs; Z79.899 Other long term (current) drug therapy; Z72.0 Tobacco use
CPT/HCPCS: 36415; 71045; 80053; 82803; 83735; 84484; 85025; 86140; 94640; 99283; A9270; 99284; J3490; J7620-GY

== ENCOUNTER 2023-01-10 13:40 | Emergency (ER) | payer MEDICARE, BC ==
[2023-01-10 14:26] LABS: BASOPHILS PERCENT AUTO 0.5 % (0.0-1.5); EOSINOPHILS ABSOLUTE AUTO 0.1 K/uL (0.0-0.7); EOSINOPHILS PERCENT AUTO 0.7 % (0.0-7.0); HEMATOCRIT 39.7 % (36.0-46.0); HEMOGLOBIN 12.9 g/dL (12.0-16.0); LYMPHOCYTES ABSOLUTE AUTO 2.2 K/uL (0.6-2.4); LYMPHOCYTES PERCENT AUTO 24.5 % (16.0-40.0); MEAN CORPUSCULAR HEMOGLOBIN 28.5 pg (27.0-32.0); MEAN CORPUSCULAR HGB CONC 32.5 g/dL (31.0-37.0); MEAN CORPUSCULAR VOLUME 87.6 fL (80.0-98.0); MONOCYTES ABSOLUTE AUTO 0.8 K/uL (0.0-0.8); MONOCYTES PERCENT AUTO 8.8 % (0.0-15.0); NEUTROPHILS ABSOLUTE AUTO 5.8 K/uL (1.4-5.7); NEUTROPHILS PERCENT AUTO 65.5 % (48.0-80.0); NRBC ABSOLUTE 0 K/uL; PLATELET COUNT,PLT 348 K/uL (150-400); RED BLOOD CELL COUNT 4.53 M/uL (4.30-5.90); WHITE BLOOD CELL COUNT,WBC 8.88 K/uL (4.0-11.0)
[2023-01-10 14:49] LABS: CALCIUM 8.6 mg/dL (8.5-10.1); CARBON DIOXIDE,CO2 27.6 mmol/L (21.0-32.0); CREATININE 0.6 mg/dL (0.6-1.0); EST CRCL DRUG DOSING (CG) 87.27 mL/min; POTASSIUM,K 3.1 mmol/L (3.5-5.1)
[2023-01-10] MEDS ORDERED: Potassium Chloride 20 MEQ Tab.ER PO ONE (15:25)
[2023-01-10] MEDS ORDERED: Aspirin 81 MG Tab.Chew PO ONE (16:31)
[2023-01-10 17:31] VITALS: BP 150/76; PULSE 76
== END 2023-01-10 16:46 | disposition home or self-care (01) ==
LOC: MW.ED 13:40
DX: R07.2 Precordial pain (principal); I25.10 Atherosclerotic heart disease of native coronary artery without angina pectoris; E78.00 Pure hypercholesterolemia, unspecified; I10 Essential (primary) hypertension; J44.9 Chronic obstructive pulmonary disease, unspecified; E11.9 Type 2 diabetes mellitus without complications; Z95.5 Presence of coronary angioplasty implant and graft; Z79.01 Long term (current) use of anticoagulants; Z79.84 Long term (current) use of oral hypoglycemic drugs; Z79.899 Other long term (current) drug therapy; Z88.1 Allergy status to other antibiotic agents; Z88.8 Allergy status to other drugs, medicaments and biological substances; Z88.0 Allergy status to penicillin; Z88.5 Allergy status to narcotic agent
CPT/HCPCS: 36415; 71046; 80048; 84484; 85025; 93005; 99285; A9270; 93010; 99283

== ENCOUNTER 2023-02-20 09:05 | Day surgery (SDC) | payer MEDICARE, BC ==
[~2023-02-20 09:05] MED LIST changes: +Dexmedetomidine 200 MCG/2 ML SDV ONE; -Glycopyrrolate 0.2 MG/ML SDV ONE; -Lidocaine 2% 5 ML SDV ONE; -Midazolam 1 MG/ML 2 ML SDV ONE; -Neostigmine Methylsulfate 1 MG/ML 5 ML Syringe ONE; -Ondansetron 4 MG/2 ML SDV ONE; -Propofol 200 MG/20 ML SDV ONE; -Rocuronium 10 MG/ML 10 ML Syringe ONE; +Water For Injection, Sterile 20 ML ONE; -fentaNYL 250 MCG/5 ML SDV ONE; +propofoL 50 ML ONE
[2023-02-20 13:33] VITALS: BP 174/80; PULSE 68
== END 2023-02-20 12:35 | disposition home or self-care (01) ==
LOC: MW.SDS 09:05
PROVIDERS: ATTEND Surgery
DX: K29.50 Unspecified chronic gastritis without bleeding (principal); K21.00 Gastro-esophageal reflux disease with esophagitis, without bleeding; K31.7 Polyp of stomach and duodenum; K44.9 Diaphragmatic hernia without obstruction or gangrene; K22.89 Other specified disease of esophagus; K57.30 Diverticulosis of large intestine without perforation or abscess without bleeding; K29.80 Duodenitis without bleeding; K63.89 Other specified diseases of intestine; D12.6 Benign neoplasm of colon, unspecified; K64.8 Other hemorrhoids; F41.9 Anxiety disorder, unspecified; J44.9 Chronic obstructive pulmonary disease, unspecified; I25.10 Atherosclerotic heart disease of native coronary artery without angina pectoris; I10 Essential (primary) hypertension; E78.00 Pure hypercholesterolemia, unspecified; E11.42 Type 2 diabetes mellitus with diabetic polyneuropathy; F17.210 Nicotine dependence, cigarettes, uncomplicated; Z88.1 Allergy status to other antibiotic agents; Z88.5 Allergy status to narcotic agent; Z88.0 Allergy status to penicillin; Z79.84 Long term (current) use of oral hypoglycemic drugs; Z79.899 Other long term (current) drug therapy; Z90.49 Acquired absence of other specified parts of digestive tract; K21.9 Gastro-esophageal reflux disease without esophagitis
CPT/HCPCS: 43239; 45385; 82947; 88305; J2704; J7120; 00731; J3490

== ENCOUNTER 2024-04-26 12:28 | Emergency (ER) | payer MEDICARE, BC ==
[2024-04-26] MEDS ORDERED: Sodium Chloride 0.9% 2.5 ML Syringe FLUSH PRN (12:34)
[2024-04-26] MEDS ORDERED: Sodium Chloride 0.9% 10 ML Syringe FLUSH PRN (12:34)
[2024-04-26 12:58] LABS: HEMATOCRIT 39.2 % (37.0-47.0); HEMOGLOBIN 13.3 g/dL (12.0-16.0); MEAN CORPUSCULAR HEMOGLOBIN 28.9 pg (28.0-32.0); MEAN CORPUSCULAR HGB CONC 33.9 g/dL (32.0-36.0); MEAN CORPUSCULAR VOLUME 85.2 fL (83.0-99.0); MEAN PLATELET VOLUME 9.3 fL (9.4-12.3); PLATELET COUNT,PLT 198 K/uL (150-400); WHITE BLOOD CELL COUNT,WBC 6.92 K/uL (3.9-11.3)
[2024-04-26] MEDS: Oxymetazoline 0.05% Nasal Spray 30 ML Bottle NAS ONE (13:09)
[2024-04-26 13:18] LABS: BAND ABSOLUTE MAN 0.07; BAND PERCENT MAN 1 %; LYMPHOCYTES PERCENT MAN 26 % (24-44); MONOCYTES ABSOLUTE MAN 0.48 K/uL (0.00-0.80); MONOCYTES PERCENT MAN 7 % (0-8); SEG NEUTROPHILS ABSOLUTE MAN 4.57 K/uL (1.80-7.70); SEG NEUTROPHILS PERCENT MAN 66 % (41-71)
[2024-04-26 13:19] LABS: REACTIVE LYMPHOCYTES FEW
[2024-04-26 13:22] LABS: A/G RATIO 0.7 (0.9-1.6); ALBUMIN 2.6 g/dL (3.4-5.0); BILIRUBIN TOTAL 0.5 mg/dL (0.2-1.0); CALCIUM 8.7 mg/dL (8.5-10.1); CREATININE 0.7 mg/dL (0.6-1.0); EST CRCL DRUG DOSING (CG) 71.01 mL/min; POTASSIUM,K 3.6 mmol/L (3.5-5.1); PROTEIN TOTAL,TP 6.4 g/dL (6.4-8.2)
[2024-04-26] MEDS: Doxycycline 100 MG Cap PO ONE (14:26)
[2024-04-26] MEDS: Albuterol/Ipratropium 3.0-0.5 MG/3 ML Neb Soln NEB ONE (14:35)
[2024-04-26] MEDS: Albuterol/Ipratropium 3.0-0.5 MG/3 ML Neb Soln ONE (15:11)
[2024-04-26 16:30] VITALS: BP 162/87; PULSE 71
== END 2024-04-26 16:29 | disposition home or self-care (01) ==
LOC: MW.ED 12:28
DX: J11.1 Influenza due to unidentified influenza virus with other respiratory manifestations (principal); I10 Essential (primary) hypertension; F17.210 Nicotine dependence, cigarettes, uncomplicated; J44.9 Chronic obstructive pulmonary disease, unspecified; E11.9 Type 2 diabetes mellitus without complications; Z90.710 Acquired absence of both cervix and uterus; Z79.899 Other long term (current) drug therapy; Z79.84 Long term (current) use of oral hypoglycemic drugs; Z88.6 Allergy status to analgesic agent; Z88.0 Allergy status to penicillin; Z88.1 Allergy status to other antibiotic agents; Z88.8 Allergy status to other drugs, medicaments and biological substances; Z88.5 Allergy status to narcotic agent
CPT/HCPCS: 36415; 71045; 80053; 85025; 93005; 94640; 99285; A9270; J7620-GY

== ENCOUNTER 2024-04-29 12:39 | Emergency (ER) | payer MEDICARE, BC ==
[2024-04-29] MEDS ORDERED: Sodium Chloride 0.9% 10 ML Syringe FLUSH PRN (12:50)
[2024-04-29] MEDS ORDERED: Sodium Chloride 0.9% 2.5 ML Syringe FLUSH PRN (12:50)
[2024-04-29 13:04] LABS: BASOPHILS ABSOLUTE AUTO 0.03 K/uL (0.00-0.20); BASOPHILS PERCENT AUTO 0.2 % (0.0-1.0); EOSINOPHILS ABSOLUTE AUTO 0.07 K/uL (0.00-0.45); EOSINOPHILS PERCENT AUTO 0.6 % (0.0-6.0); HEMATOCRIT 42.7 % (37.0-47.0); HEMOGLOBIN 14.1 g/dL (12.0-16.0); IMMATURE GRAN PERCENT AUTO 0.8 % (0.0-0.4); LYMPHOCYTES PERCENT AUTO 19.1 % (24.0-44.0); MEAN CORPUSCULAR HEMOGLOBIN 28.2 pg (28.0-32.0); MEAN CORPUSCULAR VOLUME 85.4 fL (83.0-99.0); MEAN PLATELET VOLUME 9.1 fL (9.4-12.3); MONOCYTES ABSOLUTE AUTO 0.62 K/uL (0.00-0.80); MONOCYTES PERCENT AUTO 4.9 % (0.0-8.0); NEUTROPHILS ABSOLUTE AUTO 9.32 K/uL (1.80-7.70); NEUTROPHILS PERCENT AUTO 74.4 % (41.0-71.0); PLATELET COUNT,PLT 259 K/uL (150-400); WHITE BLOOD CELL COUNT,WBC 12.54 K/uL (3.9-11.3)
[2024-04-29] MEDS: Albuterol/Ipratropium 3.0-0.5 MG/3 ML Neb Soln NEB ONE (13:34)
[2024-04-29 13:36] LABS: A/G RATIO 0.6 (0.9-1.6); ALBUMIN 2.5 g/dL (3.4-5.0); BILIRUBIN TOTAL 0.5 mg/dL (0.2-1.0); CALCIUM 8.8 mg/dL (8.5-10.1); CARBON DIOXIDE,CO2 26.1 mmol/L (21.0-32.0); CREATININE 0.7 mg/dL (0.6-1.0); EST CRCL DRUG DOSING (CG) 71.01 mL/min; POTASSIUM,K 3.5 mmol/L (3.5-5.1); PROTEIN TOTAL,TP 6.5 g/dL (6.4-8.2)
[2024-04-29] MEDS: Albuterol/Ipratropium 3.0-0.5 MG/3 ML Neb Soln ONE (13:37)
[2024-04-29] MEDS: Iopamidol 755 MG/ML 500 ML Multipack Bottle IVPUSH STA (14:30)
[2024-04-29 16:31] VITALS: BP 174/91; PULSE 79
== END 2024-04-29 16:31 | disposition home or self-care (01) ==
LOC: MW.ED 12:39
DX: J18.9 Pneumonia, unspecified organism (principal); J40 Bronchitis, not specified as acute or chronic; M79.89 Other specified soft tissue disorders; I10 Essential (primary) hypertension; E78.00 Pure hypercholesterolemia, unspecified; J44.9 Chronic obstructive pulmonary disease, unspecified; E11.9 Type 2 diabetes mellitus without complications; K21.9 Gastro-esophageal reflux disease without esophagitis; Z95.1 Presence of aortocoronary bypass graft; Z88.1 Allergy status to other antibiotic agents; Z88.8 Allergy status to other drugs, medicaments and biological substances; Z88.0 Allergy status to penicillin; Z88.5 Allergy status to narcotic agent; Z79.84 Long term (current) use of oral hypoglycemic drugs; Z79.899 Other long term (current) drug therapy; Z90.49 Acquired absence of other specified parts of digestive tract
CPT/HCPCS: 36415; 71275; 80053; 83880; 84484; 85025; 85379; 93005; 99285; Q9967; 93010; 99283; J7620-GY

== ENCOUNTER 2024-05-04 12:17 | Inpatient (IN) | payer MEDICARE, BC ==
[2024-05-04] MEDS: methylPREDNISolone Sodium Succinate 125 MG/2 ML SDV IVPUSH ONE (13:12)
[2024-05-04] MEDS: Albuterol/Ipratropium 3.0-0.5 MG/3 ML Neb Soln NEB ONE (13:12)
[2024-05-04 13:14] LABS: BASOPHILS ABSOLUTE AUTO 0.03 K/uL (0.00-0.20); BASOPHILS PERCENT AUTO 0.2 % (0.0-1.0); EOSINOPHILS ABSOLUTE AUTO 0.01 K/uL (0.00-0.45); EOSINOPHILS PERCENT AUTO 0.1 % (0.0-6.0); HEMATOCRIT 45.7 % (37.0-47.0); HEMOGLOBIN 15.4 g/dL (12.0-16.0); IMMATURE GRAN ABSOLUTE AUTO 0.19 K/uL (0.00-0.05); IMMATURE GRAN PERCENT AUTO 1.2 % (0.0-0.4); LYMPHOCYTES ABSOLUTE AUTO 2.69 K/uL (1.00-4.80); LYMPHOCYTES PERCENT AUTO 16.5 % (24.0-44.0); MEAN CORPUSCULAR HEMOGLOBIN 28.9 pg (28.0-32.0); MEAN CORPUSCULAR HGB CONC 33.7 g/dL (32.0-36.0); MEAN CORPUSCULAR VOLUME 85.7 fL (83.0-99.0); MEAN PLATELET VOLUME 9.5 fL (9.4-12.3); MONOCYTES ABSOLUTE AUTO 0.71 K/uL (0.00-0.80); MONOCYTES PERCENT AUTO 4.4 % (0.0-8.0); NEUTROPHILS ABSOLUTE AUTO 12.63 K/uL (1.80-7.70); NEUTROPHILS PERCENT AUTO 77.6 % (41.0-71.0); PLATELET COUNT,PLT 275 K/uL (150-400); RED BLOOD CELL COUNT 5.33 M/uL (4.10-5.30); WHITE BLOOD CELL COUNT,WBC 16.26 K/uL (3.9-11.3)
[2024-05-04 13:40] LABS: A/G RATIO 0.6 (0.9-1.6); ALANINE AMINOTRANSFERASE,ALT 29 IU/L (14-63); ALBUMIN 2.7 g/dL (3.4-5.0); ALKALINE PHOSPHATASE 88 U/L (46-116); ASPARTATE AMNIOTRANSFERASE,AST 14 IU/L (15-37); BILIRUBIN TOTAL 1.2 mg/dL (0.2-1.0); BLOOD UREA NITROGEN,BUN 10 mg/dL (7.0-18.0); CALCIUM 8.9 mg/dL (8.5-10.1); CARBON DIOXIDE,CO2 29.3 mmol/L (21.0-32.0); CHLORIDE,CL 101 mmol/L (98-107); CREATININE 0.7 mg/dL (0.6-1.0); GLUCOSE RANDOM 202 mg/dL (74-106); POTASSIUM,K 3.6 mmol/L (3.5-5.1); PRO B-TYPE NATRIUR PEPT,BNPPRO 383 pg/mL (0-125); SODIUM,NA 139 mmol/L (136-145)
[2024-05-04 13:43] LABS: ESTIMATED GFR 94 mL/min (>60)
[2024-05-04] MEDS ORDERED: Magnesium Sulfate (4.06 MEQ/ML) 5 GM/10 ML SDV IV STA (13:46)
[2024-05-04] MEDS ORDERED: Sennosides/Docusate Sodium 50-8.6 MG Tab PO PRN (14:14)
[2024-05-04] MEDS ORDERED: Polyethylene Glycol 3350 Powder 17 GM Packet PO PRN (14:14)
[2024-05-04] MEDS ORDERED: Melatonin 3 MG Tab PO PRN (14:14)
[2024-05-04] MEDS ORDERED: Ondansetron 4 MG Tab.DIS PO PRN (14:14)
[2024-05-04] MEDS ORDERED: Albuterol/Ipratropium 3.0-0.5 MG/3 ML Neb Soln NEB PRN (14:14)
[2024-05-04] MEDS ORDERED: Ibuprofen 600 MG Tab PO PRN (14:14)
[2024-05-04] MEDS: Magnesium Sulfate/Water Premix 2 GM in Premix Bag 1 BAG IV ONE (14:29)
[2024-05-04] MEDS: Levofloxacin/Dextrose 5%-Water 750 MG in Premix Bag 1 BAG IV ONE (14:29)
[2024-05-04] MEDS ORDERED: LIDOCAINE TRDERM PRN (14:37)
[2024-05-04] MEDS ORDERED: DIAZEPAM 5 MG PO PRN (14:37)
[2024-05-04 15:00] LABS: LACTIC ACID 1.9 mmol/L (0.4-2.0)
[2024-05-04] MEDS ORDERED: Lidocaine 4% 1 each Patch TOP PRN (15:17)
[2024-05-04] MEDS: Lidocaine 4% 1 each Patch TOP STA (15:20)
[2024-05-04] MEDS: Enoxaparin 40 MG/0.4 ML Syringe SUBCUT SCH (15:21)
[2024-05-04] MEDS: Non-Formulary Medication 1 Each (Hydroxyzine Hcl 25 MG Tablet) PO SCH (16:31)
[2024-05-04] MEDS: Losartan 25 MG Tab PO SCH (17:26)
[2024-05-04] MEDS: Albuterol/Ipratropium 3.0-0.5 MG/3 ML Neb Soln NEB SCH (17:33)
[2024-05-04] MEDS ORDERED: LORazepam 0.5 MG Tab PO PRN (18:32)
[2024-05-04] MEDS: Nicotine 14 MG/24 Hr Patch TRDERM SCH (18:37)
[2024-05-04] MEDS: Carvedilol 25 MG Tab PO SCH (21:08)
[2024-05-04] MEDS: Famotidine 20 MG Tab PO SCH (21:10)
[2024-05-05 06:02] LABS: BASOPHILS ABSOLUTE AUTO 0.02 K/uL (0.00-0.20); BASOPHILS PERCENT AUTO 0.2 % (0.0-1.0); HEMATOCRIT 38.5 % (37.0-47.0); IMMATURE GRAN PERCENT AUTO 1.8 % (0.0-0.4); LYMPHOCYTES ABSOLUTE AUTO 1.53 K/uL (1.00-4.80); LYMPHOCYTES PERCENT AUTO 13.9 % (24.0-44.0); MEAN CORPUSCULAR HEMOGLOBIN 28.6 pg (28.0-32.0); MEAN CORPUSCULAR HGB CONC 33.8 g/dL (32.0-36.0); MEAN CORPUSCULAR VOLUME 84.6 fL (83.0-99.0); MEAN PLATELET VOLUME 9.5 fL (9.4-12.3); MONOCYTES ABSOLUTE AUTO 0.59 K/uL (0.00-0.80); MONOCYTES PERCENT AUTO 5.4 % (0.0-8.0); NEUTROPHILS ABSOLUTE AUTO 8.68 K/uL (1.80-7.70); NEUTROPHILS PERCENT AUTO 78.7 % (41.0-71.0); PLATELET COUNT,PLT 238 K/uL (150-400); RED BLOOD CELL COUNT 4.55 M/uL (4.10-5.30); WHITE BLOOD CELL COUNT,WBC 11.02 K/uL (3.9-11.3)
[2024-05-05 06:32] LABS: A/G RATIO 0.6 (0.9-1.6); ALBUMIN 2.2 g/dL (3.4-5.0); BILIRUBIN TOTAL 0.8 mg/dL (0.2-1.0); CALCIUM 8.8 mg/dL (8.5-10.1); CARBON DIOXIDE,CO2 25.4 mmol/L (21.0-32.0); CREATININE 0.6 mg/dL (0.6-1.0); EST CRCL DRUG DOSING (CG) 82.84 mL/min; POTASSIUM,K 3.8 mmol/L (3.5-5.1)
[2024-05-05] MEDS ORDERED: Losartan 25 MG Tab PO SCH (09:00)
[2024-05-05] MEDS: Clopidogrel 75 MG Tab PO SCH (09:21)
[2024-05-05] MEDS: guaiFENesin 600 MG Tab.ER PO SCH (09:21)
[2024-05-05] MEDS: atorvaSTATin 40 MG Tab PO SCH (09:21)
[2024-05-05] MEDS: Losartan 25 MG Tab PO SCH ×2 (09:22→16:07)
[2024-05-05] MEDS: methylPREDNISolone Sodium Succinate 125 MG/2 ML SDV IVPUSH SCH (09:23)
[2024-05-05] MEDS: hydrOXYzine HCl 25 MG Tab PO PRN (10:29)
[2024-05-05 10:50] LABS: CORONAVIRUS COVID-19 NAA NEGATIVE (NEGATIVE); INFLUENZA A NAA NEGATIVE (NEGATIVE); INFLUENZA B NAA NEGATIVE (NEGATIVE)
[2024-05-05] MEDS: Levofloxacin 750 MG Tab PO SCH (14:10)
[2024-05-05] MEDS ORDERED: methylPREDNISolone 4 MG Tab 21 Tab/Dosepak PO SCH (14:15)
[2024-05-05] MEDS: Famotidine 20 MG Tab PO SCH (17:31)
[2024-05-05] MEDS: Carvedilol 25 MG Tab PO SCH ×2 (18:46→21:12)
[2024-05-05 23:07] LABS: BORDETELLA PARAPERT IS1001 Not Detected (Not Detected)
[2024-05-06 06:06] LABS: BASOPHILS ABSOLUTE AUTO 0.02 K/uL (0.00-0.20); BASOPHILS PERCENT AUTO 0.1 % (0.0-1.0); HEMATOCRIT 37.3 % (37.0-47.0); HEMOGLOBIN 12.7 g/dL (12.0-16.0); IMMATURE GRAN ABSOLUTE AUTO 0.14 K/uL (0.00-0.05); LYMPHOCYTES ABSOLUTE AUTO 1.93 K/uL (1.00-4.80); LYMPHOCYTES PERCENT AUTO 13.9 % (24.0-44.0); MEAN CORPUSCULAR HEMOGLOBIN 28.9 pg (28.0-32.0); MEAN PLATELET VOLUME 9.3 fL (9.4-12.3); MONOCYTES ABSOLUTE AUTO 0.78 K/uL (0.00-0.80); MONOCYTES PERCENT AUTO 5.6 % (0.0-8.0); NEUTROPHILS PERCENT AUTO 79.4 % (41.0-71.0); PLATELET COUNT,PLT 226 K/uL (150-400); RED BLOOD CELL COUNT 4.39 M/uL (4.10-5.30); WHITE BLOOD CELL COUNT,WBC 13.87 K/uL (3.9-11.3)
[2024-05-06 06:36] LABS: A/G RATIO 0.7 (0.9-1.6); ALBUMIN 2.3 g/dL (3.4-5.0); BILIRUBIN TOTAL 1.1 mg/dL (0.2-1.0); CALCIUM 8.9 mg/dL (8.5-10.1); CARBON DIOXIDE,CO2 25.4 mmol/L (21.0-32.0); CREATININE 0.6 mg/dL (0.6-1.0); EST CRCL DRUG DOSING (CG) 82.84 mL/min; POTASSIUM,K 3.6 mmol/L (3.5-5.1); PROTEIN TOTAL,TP 5.7 g/dL (6.4-8.2)
[2024-05-06] MEDS: Losartan 25 MG Tab PO SCH (09:07)
[2024-05-06 11:10] VITALS: PULSE 86
[2024-05-06 16:18] VITALS: BP 140/72
== END 2024-05-06 16:05 | disposition home or self-care (01) | DRG 192 ==
LOC: MW.ED 12:17 → MW.MS 13:54
PROVIDERS: ADMIT Internal Medicine; ATTEND Internal Medicine
DX: J18.9 Pneumonia, unspecified organism (principal); J44.1 Chronic obstructive pulmonary disease with (acute) exacerbation; I10 Essential (primary) hypertension; E11.9 Type 2 diabetes mellitus without complications; E78.00 Pure hypercholesterolemia, unspecified; F17.210 Nicotine dependence, cigarettes, uncomplicated; J30.9 Allergic rhinitis, unspecified; Z90.710 Acquired absence of both cervix and uterus; K21.9 Gastro-esophageal reflux disease without esophagitis; Z79.52 Long term (current) use of systemic steroids; Z79.84 Long term (current) use of oral hypoglycemic drugs; M06.9 Rheumatoid arthritis, unspecified; G43.909 Migraine, unspecified, not intractable, without status migrainosus; F41.9 Anxiety disorder, unspecified; F15.90 Other stimulant use, unspecified, uncomplicated; Z98.49 Cataract extraction status, unspecified eye; Z88.1 Allergy status to other antibiotic agents; Z90.89 Acquired absence of other organs; Z88.5 Allergy status to narcotic agent; Z88.0 Allergy status to penicillin; Z88.8 Allergy status to other drugs, medicaments and biological substances; Z79.51 Long term (current) use of inhaled steroids; Z79.899 Other long term (current) drug therapy; Z79.02 Long term (current) use of antithrombotics/antiplatelets; Z99.81 Dependence on supplemental oxygen; Z87.440 Personal history of urinary (tract) infections; Z95.5 Presence of coronary angioplasty implant and graft; Z90.49 Acquired absence of other specified parts of digestive tract; Z98.890 Other specified postprocedural states
CPT/HCPCS: 0240U; 36415; 71045; 80053; 83605; 83735; 83880; 84484; 85025; 87040; 87428; 87486; 87581; 87633; 93005; 94640; 94667; 94668; 96374; 97110; 97161; 99285; 93010; 99222; 99232; 99239; A9270-GY; J1650; J1956; J2919; J3475; J7620-GY

== ENCOUNTER 2024-05-31 16:55 | Inpatient (IN) | payer MEDICARE, BC ==
[2024-05-31] MEDS ORDERED: Sodium Chloride 0.9% 2.5 ML Syringe FLUSH PRN (17:21)
[2024-05-31 18:10] LABS: BASOPHILS PERCENT AUTO 0.7 % (0.0-1.0); EOSINOPHILS ABSOLUTE AUTO 0.04 K/uL (0.00-0.45); EOSINOPHILS PERCENT AUTO 0.3 % (0.0-6.0); HEMATOCRIT 34.3 % (37.0-47.0); HEMOGLOBIN 11.4 g/dL (12.0-16.0); IMMATURE GRAN ABSOLUTE AUTO 0.39 K/uL (0.00-0.05); IMMATURE GRAN PERCENT AUTO 2.8 % (0.0-0.4); LYMPHOCYTES ABSOLUTE AUTO 1.79 K/uL (1.00-4.80); LYMPHOCYTES PERCENT AUTO 12.8 % (24.0-44.0); MEAN CORPUSCULAR HEMOGLOBIN 27.5 pg (28.0-32.0); MEAN CORPUSCULAR HGB CONC 33.2 g/dL (32.0-36.0); MEAN CORPUSCULAR VOLUME 82.7 fL (83.0-99.0); MONOCYTES ABSOLUTE AUTO 1.11 K/uL (0.00-0.80); NEUTROPHILS ABSOLUTE AUTO 10.52 K/uL (1.80-7.70); NEUTROPHILS PERCENT AUTO 75.4 % (41.0-71.0); PLATELET COUNT,PLT 525 K/uL (150-400); RED BLOOD CELL COUNT 4.15 M/uL (4.10-5.30); WHITE BLOOD CELL COUNT,WBC 13.95 K/uL (3.9-11.3)
[2024-05-31 18:43] LABS: A/G RATIO 0.4 (0.9-1.6); ALBUMIN 1.8 g/dL (3.4-5.0); CALCIUM 9.1 mg/dL (8.5-10.1); CARBON DIOXIDE,CO2 28.8 mmol/L (21.0-32.0); CREATININE 0.7 mg/dL (0.6-1.0); EST CRCL DRUG DOSING (CG) 71.01 mL/min; MAGNESIUM 1.7 mg/dL (1.8-2.4); POTASSIUM,K 2.7 mmol/L (3.5-5.1); PROTEIN TOTAL,TP 6.8 g/dL (6.4-8.2)
[2024-05-31] MEDS: Potassium Chloride 10 MEQ in Premix Bag 1 BAG IV SCH (19:24)
[2024-05-31] MEDS: Iopamidol 755 MG/ML 500 ML Multipack Bottle IVPUSH ONE ×2 (19:30→22:50)
[2024-05-31] MEDS: Carvedilol 25 MG Tab PO SCH (23:33)
[2024-05-31] MEDS: Famotidine 20 MG Tab PO SCH (23:33)
[2024-06-01 00:04] LABS: APPEARANCE,URINE CLEAR; BILIRUBIN,URINE NEGATIVE (NEGATIVE); COLOR,URINE YELLOW; GLUCOSE,URINE NEGATIVE (NEGATIVE); KETONES,URINE NEGATIVE (NEGATIVE); LEUKOCYTE ESTERASE,URINE NEGATIVE (NEGATIVE); NITRITE,URINE NEGATIVE (NEGATIVE); OCCULT BLOOD,URINE NEGATIVE (NEGATIVE); PH,URINE 6.5 (5.0-8.0); PROTEIN,URINE NEGATIVE (NEGATIVE)
[2024-06-01] MEDS ORDERED: Magnesium Sulfate/Water 2 GM/50 ML Premix Bag IV ONE (00:51)
[2024-06-01] MEDS ORDERED: Docusate Sodium 100 MG Cap PO PRN (01:13)
[2024-06-01] MEDS: Potassium Chloride 20 MEQ Tab.ER PO ONE ×2 (01:15→11:35)
[2024-06-01] MEDS: Magnesium Sulf/Wat 2 GM/50 mL 50 ML IV ONE (02:26)
[2024-06-01 05:51] LABS: BASOPHILS ABSOLUTE AUTO 0.06 K/uL (0.00-0.20); BASOPHILS PERCENT AUTO 0.6 % (0.0-1.0); EOSINOPHILS ABSOLUTE AUTO 0.05 K/uL (0.00-0.45); EOSINOPHILS PERCENT AUTO 0.5 % (0.0-6.0); HEMATOCRIT 29.1 % (37.0-47.0); HEMOGLOBIN 9.5 g/dL (12.0-16.0); IMMATURE GRAN ABSOLUTE AUTO 0.23 K/uL (0.00-0.05); IMMATURE GRAN PERCENT AUTO 2.4 % (0.0-0.4); LYMPHOCYTES ABSOLUTE AUTO 1.53 K/uL (1.00-4.80); MEAN CORPUSCULAR HEMOGLOBIN 27.3 pg (28.0-32.0); MEAN CORPUSCULAR HGB CONC 32.6 g/dL (32.0-36.0); MEAN CORPUSCULAR VOLUME 83.6 fL (83.0-99.0); MEAN PLATELET VOLUME 8.8 fL (9.4-12.3); MONOCYTES ABSOLUTE AUTO 0.86 K/uL (0.00-0.80); NEUTROPHILS ABSOLUTE AUTO 6.85 K/uL (1.80-7.70); NEUTROPHILS PERCENT AUTO 71.5 % (41.0-71.0); PLATELET COUNT,PLT 479 K/uL (150-400); RED BLOOD CELL COUNT 3.48 M/uL (4.10-5.30); WHITE BLOOD CELL COUNT,WBC 9.58 K/uL (3.9-11.3)
[2024-06-01 06:08] LABS: CALCIUM 8.7 mg/dL (8.5-10.1); CARBON DIOXIDE,CO2 28.2 mmol/L (21.0-32.0); CREATININE 0.6 mg/dL (0.6-1.0); EST CRCL DRUG DOSING (CG) 82.84 mL/min; POTASSIUM,K 3.3 mmol/L (3.5-5.1)
[2024-06-01] MEDS: Carvedilol 6.25 MG Tab PO SCH (09:02)
[2024-06-01] MEDS: Potassium Chloride 20 MEQ Tab.ER PO SCH (09:02)
[2024-06-01] MEDS: Polyethylene Glycol 3350 Powder 17 GM Packet PO SCH (09:02)
[2024-06-01] MEDS: Nicotine 7 MG/24 Hr Patch TRDERM SCH (10:03)
[2024-06-01] MEDS: Acetaminophen 325 MG Tab PO PRN (10:03)
[2024-06-01] MEDS ORDERED: Furosemide 40 MG in Sodium Chloride 0.9% 50 ML IV SCH (10:30)
[2024-06-01] MEDS: Furosemide 40 MG/4 ML VIAL IVPUSH SCH ×2 (11:35→19:41)
[2024-06-01 16:28] LABS: CALCIUM 8.8 mg/dL (8.5-10.1); CREATININE 0.6 mg/dL (0.6-1.0); EST CRCL DRUG DOSING (CG) 82.84 mL/min; POTASSIUM,K 3.5 mmol/L (3.5-5.1)
[2024-06-01] MEDS: Cyclobenzaprine 10 MG Tab PO PRN (19:40)
[2024-06-02 06:25] LABS: BASOPHILS ABSOLUTE AUTO 0.06 K/uL (0.00-0.20); BASOPHILS PERCENT AUTO 0.5 % (0.0-1.0); EOSINOPHILS ABSOLUTE AUTO 0.09 K/uL (0.00-0.45); EOSINOPHILS PERCENT AUTO 0.8 % (0.0-6.0); HEMATOCRIT 28.5 % (37.0-47.0); HEMOGLOBIN 9.4 g/dL (12.0-16.0); IMMATURE GRAN PERCENT AUTO 2.6 % (0.0-0.4); LYMPHOCYTES ABSOLUTE AUTO 1.71 K/uL (1.00-4.80); LYMPHOCYTES PERCENT AUTO 14.7 % (24.0-44.0); MEAN CORPUSCULAR HEMOGLOBIN 27.4 pg (28.0-32.0); MEAN CORPUSCULAR VOLUME 83.1 fL (83.0-99.0); MEAN PLATELET VOLUME 8.9 fL (9.4-12.3); MONOCYTES PERCENT AUTO 8.6 % (0.0-8.0); NEUTROPHILS ABSOLUTE AUTO 8.45 K/uL (1.80-7.70); NEUTROPHILS PERCENT AUTO 72.8 % (41.0-71.0); PLATELET COUNT,PLT 520 K/uL (150-400); RED BLOOD CELL COUNT 3.43 M/uL (4.10-5.30); WHITE BLOOD CELL COUNT,WBC 11.61 K/uL (3.9-11.3)
[2024-06-02 06:46] LABS: A/G RATIO 0.4 (0.9-1.6); ALBUMIN 1.6 g/dL (3.4-5.0); BILIRUBIN TOTAL 0.8 mg/dL (0.2-1.0); CALCIUM 8.7 mg/dL (8.5-10.1); CREATININE 0.7 mg/dL (0.6-1.0); EST CRCL DRUG DOSING (CG) 71.01 mL/min; MAGNESIUM 1.8 mg/dL (1.8-2.4); POTASSIUM,K 3.7 mmol/L (3.5-5.1); PROTEIN TOTAL,TP 6.1 g/dL (6.4-8.2)
[2024-06-02] MEDS: predniSONE 5 MG Tab PO SCH (09:03)
[2024-06-02] MEDS: Clopidogrel 75 MG Tab PO SCH (09:04)
[2024-06-02] MEDS: Magnesium Oxide 400 MG Tab PO SCH (09:05)
[2024-06-02] MEDS: Furosemide 40 MG/4 ML VIAL IVPUSH SCH (14:38)
[2024-06-02] MEDS: Enoxaparin 40 MG/0.4 ML Syringe SUBCUT SCH (18:56)
[2024-06-02] MEDS: atorvaSTATin 40 MG Tab PO SCH (21:08)
[2024-06-02] MEDS: Sodium Chloride 0.9% 10 ML Syringe FLUSH PRN (21:13)
[2024-06-03 06:08] LABS: BASOPHILS ABSOLUTE AUTO 0.06 K/uL (0.00-0.20); BASOPHILS PERCENT AUTO 0.6 % (0.0-1.0); EOSINOPHILS PERCENT AUTO 0.9 % (0.0-6.0); HEMATOCRIT 27.9 % (37.0-47.0); IMMATURE GRAN ABSOLUTE AUTO 0.21 K/uL (0.00-0.05); LYMPHOCYTES ABSOLUTE AUTO 1.87 K/uL (1.00-4.80); LYMPHOCYTES PERCENT AUTO 17.6 % (24.0-44.0); MEAN CORPUSCULAR HEMOGLOBIN 27.1 pg (28.0-32.0); MEAN CORPUSCULAR HGB CONC 32.3 g/dL (32.0-36.0); MEAN PLATELET VOLUME 8.7 fL (9.4-12.3); MONOCYTES ABSOLUTE AUTO 0.83 K/uL (0.00-0.80); MONOCYTES PERCENT AUTO 7.8 % (0.0-8.0); NEUTROPHILS ABSOLUTE AUTO 7.58 K/uL (1.80-7.70); NEUTROPHILS PERCENT AUTO 71.1 % (41.0-71.0); PLATELET COUNT,PLT 482 K/uL (150-400); RED BLOOD CELL COUNT 3.32 M/uL (4.10-5.30); WHITE BLOOD CELL COUNT,WBC 10.65 K/uL (3.9-11.3)
[2024-06-03 06:30] LABS: A/G RATIO 0.3 (0.9-1.6); ALBUMIN 1.5 g/dL (3.4-5.0); BILIRUBIN TOTAL 0.5 mg/dL (0.2-1.0); CALCIUM 8.8 mg/dL (8.5-10.1); CARBON DIOXIDE,CO2 28.8 mmol/L (21.0-32.0); CREATININE 0.6 mg/dL (0.6-1.0); EST CRCL DRUG DOSING (CG) 82.84 mL/min; MAGNESIUM 1.9 mg/dL (1.8-2.4)
[2024-06-03] MEDS: Midodrine 5 MG Tab PO ONE (07:08)
[2024-06-03] MEDS: Pantoprazole 40 MG Tab.CR PO SCH (07:08)
[2024-06-03] MEDS: Midodrine 5 MG Tab PO SCH (20:54)
[2024-06-04] MEDS: fentaNYL 50 MCG/ML SDV IVPUSH ONE (06:04)
[2024-06-04 06:50] LABS: BASOPHILS ABSOLUTE AUTO 0.06 K/uL (0.00-0.20); BASOPHILS PERCENT AUTO 0.6 % (0.0-1.0); EOSINOPHILS ABSOLUTE AUTO 0.09 K/uL (0.00-0.45); EOSINOPHILS PERCENT AUTO 0.8 % (0.0-6.0); HEMATOCRIT 28.5 % (37.0-47.0); HEMOGLOBIN 9.5 g/dL (12.0-16.0); IMMATURE GRAN PERCENT AUTO 1.8 % (0.0-0.4); LYMPHOCYTES ABSOLUTE AUTO 2.03 K/uL (1.00-4.80); LYMPHOCYTES PERCENT AUTO 18.7 % (24.0-44.0); MEAN CORPUSCULAR HEMOGLOBIN 27.7 pg (28.0-32.0); MEAN CORPUSCULAR HGB CONC 33.3 g/dL (32.0-36.0); MEAN CORPUSCULAR VOLUME 83.1 fL (83.0-99.0); MEAN PLATELET VOLUME 8.6 fL (9.4-12.3); MONOCYTES ABSOLUTE AUTO 0.91 K/uL (0.00-0.80); MONOCYTES PERCENT AUTO 8.4 % (0.0-8.0); NEUTROPHILS ABSOLUTE AUTO 7.57 K/uL (1.80-7.70); NEUTROPHILS PERCENT AUTO 69.7 % (41.0-71.0); PLATELET COUNT,PLT 506 K/uL (150-400); RED BLOOD CELL COUNT 3.43 M/uL (4.10-5.30); WHITE BLOOD CELL COUNT,WBC 10.86 K/uL (3.9-11.3)
[2024-06-04 07:13] LABS: A/G RATIO 0.3 (0.9-1.6); ALBUMIN 1.6 g/dL (3.4-5.0); BILIRUBIN TOTAL 0.4 mg/dL (0.2-1.0); CARBON DIOXIDE,CO2 27.5 mmol/L (21.0-32.0); CREATININE 0.6 mg/dL (0.6-1.0); EST CRCL DRUG DOSING (CG) 82.84 mL/min; MAGNESIUM 1.9 mg/dL (1.8-2.4); POTASSIUM,K 4.2 mmol/L (3.5-5.1); PROTEIN TOTAL,TP 6.3 g/dL (6.4-8.2)
[2024-06-04] MEDS: Furosemide 40 MG Tab PO SCH (08:35)
[2024-06-04] MEDS: Enoxaparin 100 MG/1 ML Syringe SUBCUT SCH (12:07)
[2024-06-04] MEDS: Furosemide 40 MG/4 ML VIAL IVPUSH SCH (12:07)
[2024-06-04] MEDS: Iopamidol 755 MG/ML 500 ML Multipack Bottle IVPUSH STA (14:31)
[2024-06-05 05:51] LABS: BASOPHILS ABSOLUTE AUTO 0.07 K/uL (0.00-0.20); BASOPHILS PERCENT AUTO 0.7 % (0.0-1.0); EOSINOPHILS ABSOLUTE AUTO 0.13 K/uL (0.00-0.45); EOSINOPHILS PERCENT AUTO 1.3 % (0.0-6.0); HEMATOCRIT 28.1 % (37.0-47.0); HEMOGLOBIN 9.2 g/dL (12.0-16.0); IMMATURE GRAN ABSOLUTE AUTO 0.27 K/uL (0.00-0.05); IMMATURE GRAN PERCENT AUTO 2.6 % (0.0-0.4); LYMPHOCYTES PERCENT AUTO 22.2 % (24.0-44.0); MEAN CORPUSCULAR HEMOGLOBIN 27.5 pg (28.0-32.0); MEAN CORPUSCULAR HGB CONC 32.7 g/dL (32.0-36.0); MEAN CORPUSCULAR VOLUME 83.9 fL (83.0-99.0); MONOCYTES ABSOLUTE AUTO 0.91 K/uL (0.00-0.80); MONOCYTES PERCENT AUTO 8.8 % (0.0-8.0); NEUTROPHILS ABSOLUTE AUTO 6.67 K/uL (1.80-7.70); NEUTROPHILS PERCENT AUTO 64.4 % (41.0-71.0); PLATELET COUNT,PLT 541 K/uL (150-400); RED BLOOD CELL COUNT 3.35 M/uL (4.10-5.30); WHITE BLOOD CELL COUNT,WBC 10.35 K/uL (3.9-11.3)
[2024-06-05 06:15] LABS: A/G RATIO 0.3 (0.9-1.6); ALBUMIN 1.6 g/dL (3.4-5.0); BILIRUBIN TOTAL 0.5 mg/dL (0.2-1.0); CARBON DIOXIDE,CO2 27.3 mmol/L (21.0-32.0); CREATININE 0.6 mg/dL (0.6-1.0); EST CRCL DRUG DOSING (CG) 82.84 mL/min; MAGNESIUM 2.1 mg/dL (1.8-2.4); POTASSIUM,K 4.1 mmol/L (3.5-5.1); PROTEIN TOTAL,TP 6.6 g/dL (6.4-8.2)
[2024-06-05] MEDS ORDERED: Naloxone 0.4 MG/ML SDV IVPUSH PRN (09:11)
[2024-06-05] MEDS: HYDROmorphone 0.5 MG/0.5 ML Syringe IVPUSH ONE (09:38)
[2024-06-06] MEDS: HYDROmorphone 0.5 MG/0.5 ML Syringe IVPUSH PRN (02:46)
[2024-06-06 06:10] LABS: BASOPHILS ABSOLUTE AUTO 0.09 K/uL (0.00-0.20); BASOPHILS PERCENT AUTO 0.7 % (0.0-1.0); EOSINOPHILS ABSOLUTE AUTO 0.08 K/uL (0.00-0.45); EOSINOPHILS PERCENT AUTO 0.6 % (0.0-6.0); HEMATOCRIT 30.5 % (37.0-47.0); IMMATURE GRAN ABSOLUTE AUTO 0.26 K/uL (0.00-0.05); IMMATURE GRAN PERCENT AUTO 2.1 % (0.0-0.4); LYMPHOCYTES ABSOLUTE AUTO 2.43 K/uL (1.00-4.80); LYMPHOCYTES PERCENT AUTO 19.3 % (24.0-44.0); MEAN CORPUSCULAR HEMOGLOBIN 27.5 pg (28.0-32.0); MEAN CORPUSCULAR HGB CONC 32.8 g/dL (32.0-36.0); MEAN CORPUSCULAR VOLUME 83.8 fL (83.0-99.0); MEAN PLATELET VOLUME 8.7 fL (9.4-12.3); MONOCYTES ABSOLUTE AUTO 0.89 K/uL (0.00-0.80); MONOCYTES PERCENT AUTO 7.1 % (0.0-8.0); NEUTROPHILS ABSOLUTE AUTO 8.86 K/uL (1.80-7.70); NEUTROPHILS PERCENT AUTO 70.2 % (41.0-71.0); PLATELET COUNT,PLT 558 K/uL (150-400); RED BLOOD CELL COUNT 3.64 M/uL (4.10-5.30); WHITE BLOOD CELL COUNT,WBC 12.61 K/uL (3.9-11.3)
[2024-06-06 06:31] LABS: ALBUMIN 1.8 g/dL (3.4-5.0); BILIRUBIN TOTAL 0.5 mg/dL (0.2-1.0); CALCIUM 9.4 mg/dL (8.5-10.1); CARBON DIOXIDE,CO2 28.7 mmol/L (21.0-32.0); CREATININE 0.7 mg/dL (0.6-1.0); EST CRCL DRUG DOSING (CG) 71.01 mL/min; MAGNESIUM 1.8 mg/dL (1.8-2.4); POTASSIUM,K 4.4 mmol/L (3.5-5.1)
[2024-06-06 06:33] LABS: A/G RATIO 0.4 (0.9-1.6)
[2024-06-06] MEDS: Magnesium Oxide 400 MG Tab PO SCH (08:21)
[2024-06-06 16:12] VITALS: BP 123/58; PULSE 95
[2024-06-07] MEDS ORDERED: Potassium Chloride 10% 20 MEQ/15 ML Soln 15 ML UD Cup PO SCH (09:00)
== END 2024-06-06 18:15 | disposition home or self-care (01) | DRG 640 ==
LOC: MW.ED 16:55 → MW.MS 20:29 → OBSVTOIN 06-01 10:35 → MW.MS 06-01 16:28
PROVIDERS: ADMIT Internal Medicine; ATTEND Internal Medicine
DX: E87.6 Hypokalemia (principal); I50.33 Acute on chronic diastolic (congestive) heart failure; I82.461 Acute embolism and thrombosis of right calf muscular vein; I11.0 Hypertensive heart disease with heart failure; R60.0 Localized edema; I10 Essential (primary) hypertension; J44.9 Chronic obstructive pulmonary disease, unspecified; F17.210 Nicotine dependence, cigarettes, uncomplicated; E78.00 Pure hypercholesterolemia, unspecified; E83.42 Hypomagnesemia; F41.9 Anxiety disorder, unspecified; M06.9 Rheumatoid arthritis, unspecified; K59.00 Constipation, unspecified; G43.909 Migraine, unspecified, not intractable, without status migrainosus; I25.10 Atherosclerotic heart disease of native coronary artery without angina pectoris; R00.0 Tachycardia, unspecified; I71.43 Infrarenal abdominal aortic aneurysm, without rupture; I25.2 Old myocardial infarction; Z79.4 Long term (current) use of insulin; E11.9 Type 2 diabetes mellitus without complications; K21.9 Gastro-esophageal reflux disease without esophagitis; Z86.16 Personal history of COVID-19; Z95.5 Presence of coronary angioplasty implant and graft; Z98.42 Cataract extraction status, left eye; Z98.41 Cataract extraction status, right eye; Z90.89 Acquired absence of other organs; Z79.899 Other long term (current) drug therapy; Z90.710 Acquired absence of both cervix and uterus; Z90.49 Acquired absence of other specified parts of digestive tract; Z90.722 Acquired absence of ovaries, bilateral; Z98.890 Other specified postprocedural states; Z88.0 Allergy status to penicillin; Z88.1 Allergy status to other antibiotic agents; Z88.5 Allergy status to narcotic agent; Z88.8 Allergy status to other drugs, medicaments and biological substances; Z75.8 Other problems related to medical facilities and other health care
CPT/HCPCS: 36415 ×2; 71045; 71275; 74177; 80048; 80053; 81003; 83735; 83880; 84484; 85025 ×2; 93005 ×2; 93306; 93970; 96365; 96366 ×3; 96367; 99285; A9270 ×9; G0378 ×3; J3475; J3480 ×4; Q9967 ×2; 82947; 85652; 86140; 93010; 93971-26-RT; 93971-RT; 97010-GP; 97110-GP; 97162-GP; 97530-GP; 99284; J1650; J1940; J3010; J7512

== ENCOUNTER 2024-06-22 10:39 | Emergency (ER) | payer MEDICARE, BC ==
[2024-06-22] MEDS: Albuterol/Ipratropium 3.0-0.5 MG/3 ML Neb Soln NEB ONE (11:30)
[2024-06-22 11:33] LABS: BASOPHILS ABSOLUTE AUTO 0.07 K/uL (0.00-0.20); BASOPHILS PERCENT AUTO 0.6 % (0.0-1.0); EOSINOPHILS ABSOLUTE AUTO 0.15 K/uL (0.00-0.45); EOSINOPHILS PERCENT AUTO 1.2 % (0.0-6.0); HEMATOCRIT 29.8 % (37.0-47.0); HEMOGLOBIN 9.8 g/dL (12.0-16.0); IMMATURE GRAN ABSOLUTE AUTO 0.14 K/uL (0.00-0.05); IMMATURE GRAN PERCENT AUTO 1.1 % (0.0-0.4); LYMPHOCYTES ABSOLUTE AUTO 2.26 K/uL (1.00-4.80); LYMPHOCYTES PERCENT AUTO 18.4 % (24.0-44.0); MEAN CORPUSCULAR HEMOGLOBIN 27.2 pg (28.0-32.0); MEAN CORPUSCULAR HGB CONC 32.9 g/dL (32.0-36.0); MEAN CORPUSCULAR VOLUME 82.8 fL (83.0-99.0); MEAN PLATELET VOLUME 8.5 fL (9.4-12.3); MONOCYTES ABSOLUTE AUTO 0.95 K/uL (0.00-0.80); MONOCYTES PERCENT AUTO 7.7 % (0.0-8.0); NEUTROPHILS ABSOLUTE AUTO 8.71 K/uL (1.80-7.70); PLATELET COUNT,PLT 388 K/uL (150-400); WHITE BLOOD CELL COUNT,WBC 12.28 K/uL (3.9-11.3)
[2024-06-22] MEDS: Morphine 4 MG/ML Syringe IVPUSH ONE (11:36)
[2024-06-22] MEDS: Ondansetron 4 MG/2 ML SDV IVPUSH ONE (11:38)
[2024-06-22] MEDS: HYDROmorphone 1 MG/ML Syringe IVPUSH PRN (11:38)
[2024-06-22 12:05] LABS: A/G RATIO 0.4 (0.9-1.6); BILIRUBIN TOTAL 0.8 mg/dL (0.2-1.0); CALCIUM 9.3 mg/dL (8.5-10.1); CARBON DIOXIDE,CO2 25.9 mmol/L (21.0-32.0); CREATININE 0.5 mg/dL (0.6-1.0); EST CRCL DRUG DOSING (CG) 99.41 mL/min; PROTEIN TOTAL,TP 6.7 g/dL (6.4-8.2)
[2024-06-22] MEDS: Iopamidol 755 MG/ML 500 ML Multipack Bottle IVPUSH STA (12:32)
[2024-06-22] MEDS: HYDROmorphone 0.5 MG/0.5 ML Syringe IVPUSH ONE (14:03)
[2024-06-22 14:26] VITALS: BP 137/68; PULSE 93
== END 2024-06-22 14:24 | disposition home or self-care (01) ==
LOC: MW.ED 10:39
DX: K59.00 Constipation, unspecified (principal); E78.00 Pure hypercholesterolemia, unspecified; I10 Essential (primary) hypertension; J44.9 Chronic obstructive pulmonary disease, unspecified; E11.9 Type 2 diabetes mellitus without complications; Z88.0 Allergy status to penicillin; Z88.1 Allergy status to other antibiotic agents; Z88.5 Allergy status to narcotic agent; Z88.8 Allergy status to other drugs, medicaments and biological substances; Z79.51 Long term (current) use of inhaled steroids; Z79.899 Other long term (current) drug therapy; Z79.01 Long term (current) use of anticoagulants; Z79.02 Long term (current) use of antithrombotics/antiplatelets; Z95.5 Presence of coronary angioplasty implant and graft; Z90.49 Acquired absence of other specified parts of digestive tract; Z90.710 Acquired absence of both cervix and uterus
CPT/HCPCS: 36415; 71045; 71275; 74174; 80053; 83690; 84484; 85025; 93005; 96374; 96375; 96376; 99284; A9270; J1171; J2405; Q9967

== ENCOUNTER 2024-07-13 12:26 | Observation (INO) | payer MEDICARE, BC ==
[2024-07-13 12:42] LABS: BASOPHILS ABSOLUTE AUTO 0.05 K/uL (0.00-0.20); BASOPHILS PERCENT AUTO 0.3 % (0.0-1.0); EOSINOPHILS ABSOLUTE AUTO 0.05 K/uL (0.00-0.45); EOSINOPHILS PERCENT AUTO 0.3 % (0.0-6.0); HEMATOCRIT 36.5 % (37.0-47.0); HEMOGLOBIN 11.6 g/dL (12.0-16.0); IMMATURE GRAN ABSOLUTE AUTO 0.08 K/uL (0.00-0.05); IMMATURE GRAN PERCENT AUTO 0.5 % (0.0-0.4); LYMPHOCYTES PERCENT AUTO 12.3 % (24.0-44.0); MEAN CORPUSCULAR HEMOGLOBIN 26.5 pg (28.0-32.0); MEAN CORPUSCULAR HGB CONC 31.8 g/dL (32.0-36.0); MEAN CORPUSCULAR VOLUME 83.3 fL (83.0-99.0); MEAN PLATELET VOLUME 8.9 fL (9.4-12.3); MONOCYTES ABSOLUTE AUTO 0.92 K/uL (0.00-0.80); NEUTROPHILS ABSOLUTE AUTO 12.39 K/uL (1.80-7.70); NEUTROPHILS PERCENT AUTO 80.6 % (41.0-71.0); PLATELET COUNT,PLT 388 K/uL (150-400); RED BLOOD CELL COUNT 4.38 M/uL (4.10-5.30); WHITE BLOOD CELL COUNT,WBC 15.39 K/uL (3.9-11.3)
[2024-07-13 12:57] LABS: INR 1.04 (0.86-1.11)
[2024-07-13] MEDS: HYDROmorphone 2 MG/ML Syringe IVPUSH ONE (13:20)
[2024-07-13] MEDS: Albuterol/Ipratropium 3.0-0.5 MG/3 ML Neb Soln NEB ONE (13:21)
[2024-07-13 13:23] LABS: A/G RATIO 0.6 (0.9-1.6); ALBUMIN 2.7 g/dL (3.4-5.0); BILIRUBIN TOTAL 0.8 mg/dL (0.2-1.0); CALCIUM 9.4 mg/dL (8.5-10.1); CARBON DIOXIDE,CO2 28.9 mmol/L (21.0-32.0); CREATININE 0.7 mg/dL (0.6-1.0); EST CRCL DRUG DOSING (CG) 71.01 mL/min; POTASSIUM,K 2.9 mmol/L (3.5-5.1)
[2024-07-13] MEDS: Iopamidol 755 MG/ML 500 ML Multipack Bottle IVPUSH STA (14:10)
[2024-07-13] MEDS: Levofloxacin/Dextrose 5%-Water 750 MG in Premix Bag 1 BAG IV ONE (14:12)
[2024-07-13] MEDS: Potassium Chloride 10 MEQ in Premix Bag 1 BAG IV SCH (14:13)
[2024-07-13] MEDS: Sodium Chloride 0.9% 500 ML IV ONE (14:14)
[2024-07-13] MEDS ORDERED: Acetaminophen 325 MG Tab PO PRN (15:39)
[2024-07-13] MEDS ORDERED: Polyethylene Glycol 3350 Powder 17 GM Packet PO PRN (15:39)
[2024-07-13] MEDS ORDERED: Melatonin 3 MG Tab PO PRN (15:39)
[2024-07-13] MEDS ORDERED: Albuterol/Ipratropium 3.0-0.5 MG/3 ML Neb Soln NEB PRN (15:39)
[2024-07-13] MEDS: fentaNYL 50 MCG/ML SDV IVPUSH ONE (17:04)
[2024-07-13] MEDS ORDERED: Glucagon,Human Recombinant 1 MG Vial IM PRN (17:39)
[2024-07-13] MEDS ORDERED: 50% Dextrose in Water 50 ML Syringe IVPUSH PRN (17:39)
[2024-07-13] MEDS: Nicotine 14 MG/24 Hr Patch TRDERM SCH (20:01)
[2024-07-13] MEDS: Carvedilol 6.25 MG Tab PO SCH (20:51)
[2024-07-14] MEDS: Apixaban 5 MG Tab PO SCH ×2 (03:13→08:01)
[2024-07-14 06:25] LABS: BASOPHILS ABSOLUTE AUTO 0.01 K/uL (0.00-0.20); BASOPHILS PERCENT AUTO 0.1 % (0.0-1.0); HEMATOCRIT 30.8 % (37.0-47.0); HEMOGLOBIN 9.7 g/dL (12.0-16.0); IMMATURE GRAN ABSOLUTE AUTO 0.03 K/uL (0.00-0.05); IMMATURE GRAN PERCENT AUTO 0.4 % (0.0-0.4); LYMPHOCYTES PERCENT AUTO 25.7 % (24.0-44.0); MEAN CORPUSCULAR HEMOGLOBIN 26.4 pg (28.0-32.0); MEAN CORPUSCULAR HGB CONC 31.5 g/dL (32.0-36.0); MEAN CORPUSCULAR VOLUME 83.7 fL (83.0-99.0); MEAN PLATELET VOLUME 9.2 fL (9.4-12.3); MONOCYTES ABSOLUTE AUTO 0.59 K/uL (0.00-0.80); MONOCYTES PERCENT AUTO 7.6 % (0.0-8.0); NEUTROPHILS ABSOLUTE AUTO 5.15 K/uL (1.80-7.70); NEUTROPHILS PERCENT AUTO 66.2 % (41.0-71.0); PLATELET COUNT,PLT 324 K/uL (150-400); RED BLOOD CELL COUNT 3.68 M/uL (4.10-5.30); WHITE BLOOD CELL COUNT,WBC 7.78 K/uL (3.9-11.3)
[2024-07-14 06:53] LABS: A/G RATIO 0.6 (0.9-1.6); ALBUMIN 2.2 g/dL (3.4-5.0); BILIRUBIN TOTAL 0.6 mg/dL (0.2-1.0); CARBON DIOXIDE,CO2 21.4 mmol/L (21.0-32.0); CREATININE 0.5 mg/dL (0.6-1.0); EST CRCL DRUG DOSING (CG) 99.41 mL/min; POTASSIUM,K 3.5 mmol/L (3.5-5.1); PROTEIN TOTAL,TP 5.9 g/dL (6.4-8.2)
[2024-07-14] MEDS: Nicotine 14 MG/24 Hr Patch TRDERM SCH (07:59)
[2024-07-14] MEDS ORDERED: Furosemide 40 MG Tab PO SCH (08:00)
[2024-07-14] MEDS: Clopidogrel 75 MG Tab PO SCH (08:00)
[2024-07-14] MEDS: Furosemide 40 MG Tab PO SCH (08:01)
[2024-07-14] MEDS: predniSONE 5 MG Tab PO SCH (08:02)
[2024-07-14] MEDS: Insulin Aspart 100 Units/ML 3 ML Pen SUBCUT SCH (08:06)
[2024-07-14] MEDS: Lidocaine 4% Patch TOP ONE (09:18)
[2024-07-14 11:33] VITALS: BP 157/82; PULSE 85
[2024-07-14] MEDS ORDERED: atorvaSTATin 40 MG Tab PO SCH (21:00)
== END 2024-07-14 11:55 | disposition home or self-care (01) ==
LOC: MW.ED 12:26 → MW.MS 14:18
PROVIDERS: ADMIT Internal Medicine; ATTEND Internal Medicine
DX: J43.2 Centrilobular emphysema (principal); E87.6 Hypokalemia; R07.9 Chest pain, unspecified; I50.33 Acute on chronic diastolic (congestive) heart failure; I25.10 Atherosclerotic heart disease of native coronary artery without angina pectoris; E11.9 Type 2 diabetes mellitus without complications; E78.00 Pure hypercholesterolemia, unspecified; F17.210 Nicotine dependence, cigarettes, uncomplicated; Z20.822 Contact with and (suspected) exposure to COVID-19; Z88.1 Allergy status to other antibiotic agents; Z88.8 Allergy status to other drugs, medicaments and biological substances; Z88.5 Allergy status to narcotic agent; Z88.0 Allergy status to penicillin; Z79.01 Long term (current) use of anticoagulants; Z79.899 Other long term (current) drug therapy
CPT/HCPCS: 36415; 71045; 71260; 74177; 80053; 82947; 83735; 83880; 84484; 85025; 85610; 87428; 93005; 94640; 94667; A9270; J1100; J1171; J1815; J1956; J3480; J7040; J7512; Q9967

== ENCOUNTER 2024-10-30 21:40 | Emergency (ER) | payer MEDICARE, BC ==
[2024-10-30 23:30] LABS: BASOPHILS ABSOLUTE AUTO 0.05 K/uL (0.00-0.20); BASOPHILS PERCENT AUTO 0.5 % (0.0-1.0); EOSINOPHILS ABSOLUTE AUTO 0.07 K/uL (0.00-0.45); EOSINOPHILS PERCENT AUTO 0.6 % (0.0-6.0); IMMATURE GRAN ABSOLUTE AUTO 0.05 K/uL (0.00-0.05); IMMATURE GRAN PERCENT AUTO 0.5 % (0.0-0.4); LYMPHOCYTES ABSOLUTE AUTO 3.48 K/uL (1.00-4.80); LYMPHOCYTES PERCENT AUTO 31.9 % (24.0-44.0); MEAN PLATELET VOLUME 9.4 fL (9.4-12.3); MONOCYTES ABSOLUTE AUTO 0.79 K/uL (0.00-0.80); MONOCYTES PERCENT AUTO 7.2 % (0.0-8.0); NEUTROPHILS ABSOLUTE AUTO 6.48 K/uL (1.80-7.70); NEUTROPHILS PERCENT AUTO 59.3 % (41.0-71.0); NRBC ABSOLUTE 0.00 K/uL (0.00-0.02); NRBC PERCENT 0.0 /100WBC (0.0-0.2); PLATELET COUNT,PLT 290 K/uL (150-400); RED BLOOD CELL COUNT 4.95 M/uL (4.10-5.30); WHITE BLOOD CELL COUNT,WBC 10.92 K/uL (3.9-11.3)
[2024-10-30 23:50] LABS: A/G RATIO 0.6 (0.9-1.6); ALANINE AMINOTRANSFERASE,ALT 27.0 IU/L (14-63); ASPARTATE AMNIOTRANSFERASE,AST 20.0 IU/L (15-37); BILIRUBIN TOTAL 0.8 mg/dL (0.2-1.0); BLOOD UREA NITROGEN,BUN 11.0 mg/dL (7.0-18.0); CARBON DIOXIDE,CO2 28.1 mmol/L (21.0-32.0); CHLORIDE,CL 105.0 mmol/L (98-107); CREATININE 0.6 mg/dL (0.6-1.0); EST CRCL DRUG DOSING (CG) 81.67 mL/min; ESTIMATED GFR 97.0 mL/min (>60); GLUCOSE RANDOM 97.0 mg/dL (74-106); POTASSIUM,K 3.4 mmol/L (3.5-5.1); PROTEIN TOTAL,TP 6.8 g/dL (6.4-8.2); SODIUM,NA 139.0 mmol/L (136-145)
[2024-10-31 01:26] LABS: APPEARANCE,URINE CLEAR; GLUCOSE,URINE NEGATIVE (NEGATIVE); OCCULT BLOOD,URINE NEGATIVE (NEGATIVE)
[2024-10-31 01:40] LABS: SQUAMOUS EPITHELIAL CELLS,UR FEW
[2024-10-31] MEDS: Ketorolac 30 MG/ML SDV IVPUSH ONE (02:47)
[2024-10-31 03:01] VITALS: BP 120/72; PULSE 85
== END 2024-10-31 03:01 | disposition home or self-care (01) ==
LOC: MW.ED 21:40
DX: M54.14 Radiculopathy, thoracic region (principal); I10 Essential (primary) hypertension; E78.00 Pure hypercholesterolemia, unspecified; J44.9 Chronic obstructive pulmonary disease, unspecified; K21.9 Gastro-esophageal reflux disease without esophagitis; E11.9 Type 2 diabetes mellitus without complications; Z95.5 Presence of coronary angioplasty implant and graft; Z90.710 Acquired absence of both cervix and uterus; Z79.899 Other long term (current) drug therapy; Z79.02 Long term (current) use of antithrombotics/antiplatelets; Z79.01 Long term (current) use of anticoagulants; Z88.5 Allergy status to narcotic agent; Z88.0 Allergy status to penicillin; Z88.8 Allergy status to other drugs, medicaments and biological substances; Z88.1 Allergy status to other antibiotic agents
CPT/HCPCS: 36415; 71260; 74177; 80053; 81001; 83690; 84484; 85025; 93005; 96361; 96374; 96376; 99284; A9270; J7030; 93010; J1171; J1885